=== PATIENT | female | born 1950 | race Caucasian/White ===

== ENCOUNTER 2016-12-05 08:47 | Inpatient (IN) | payer OTHER ==
[~2016-12-05] VITALS: Ht 162.6 cm; Wt 106.6 kg
[~2016-12-05 08:47] MED LIST: ADVAIR HFA 115-12 GM PO; ALBUTEROL 3 ML3 ML INH; ALLERGY10 MG PO; ASPIRIN EC81 M1 PO; ASPIRIN81 M4 PO; BENADRYL25 MG PO; CELEXA20 M1 PO; CELEXA40 M1 PO; CELEXA40 MG PO; CIPRO 500MG TA500 MG PO; CITALOPRAM40 MG PO; CRANBERRY CONC500 MG PO; CRANBERRY250 MG PO; CRANBERRY500 M2 PO; ECOTRIN81 MG PO; ENALAPRIL MALEA10 M1 PO; ENALAPRIL MALEA20 M1 PO; ENALAPRIL MALEA20 MG PO; HUMALOG 100U100 U/ML SC; HUMALOG100 UNIT/2; HYDROCHLOROTHIA25 M1 PO; HYDROCODON-ACE1 EAC2 PO; HYDROCODONE BI120 M1 PO; HYDRODIURIL 2525 MG PO; LANTUS SOL100 UNIT/1 SC; LANTUS100 U/ML SC; LEVEMIR 10100 UNITS/ SC; LEVOTHYROXINE0.15 M1 PO; LIPITOR20 M2 PO; LOVENOX 4040 MG/0.4 SC; LUNESTA2 MG PO; MAGNESIUM250 M2 PO; MAGNESIUM400 M1 PO; MASON NATURAL1200 MG PO; MELATONIN10 M2 PO; NOVOLOG100 U/ML SC; OMEGA-31000 M1 PO; PANTOPRAZOLE SO40 M1 PO; PANTOPRAZOLE SO40 MG PO; PERCOCET 325 MG1 TA2 PO; POTASSIUM99 M1 PO; PREDNISONE10 MG PO; PROBIOTIC FORMU1 CA1 PO; PROBIOTIC FORMU1 CAP PO; PROBIOTIC1 EACH PO; PYRIDIUM100 MG PO; SINGULAIR10 M1 PO; SYNTHROID0.15 MG PO; SYNTHROID0.175 MG PO; SYNTHROID137 MCG PO; SYNTHROID175 MCG PO; VITAMIN B-12500 MC1 PO; VITAMIN B-12500 MC2 PO; [UNRECOGNIZED DRUG - OTHER] PO; [UNRECOGNIZED DRUG - REMARK] PO
[2016-12-05 09:22] LABS: ABSOLUTE BASOPHIL COUNT 0 /CUMM (0.0-0.2); ABSOLUTE EOSINOPHIL COUNT 0.2 /CUMM (0.0-0.7); ABSOLUTE GRANULOCYTE CT 6.9 /CUMM (1.4-6.5); ABSOLUTE LYMPH COUNT 1.2 /CUMM (1.2-3.4); ABSOLUTE MONOCYTE COUNT 0.7 /CUMM (0.10-0.60); BASOPHIL % 0 % (0.0-2.0); EOSINOPHIL % 2.7 % (0-5); GRANULOCYTE % 76.7 % (42.2-75.2); HEMATOCRIT 33.6 % (37-47); MEAN CORPUSCULAR HGB CONC 33.6 G/DL (33.0-37.0); MEAN CORPUSCULAR VOLUME 77.3 FL (81.0-99.0); MEAN PLATELET VOLUME 9.4 FL (7.4-10.4); PLATELET COUNT 318 /CUMM (130-400); RBC DISTRIBUTION WIDTH 16.1 % (11.5-14.5); RED BLOOD CELL CT 4.35 /CUMM (4.20-5.40)
[2016-12-05] MEDS ORDERED: LAMICTAL25 M1 PO (09:42)
[2016-12-05] MEDS ORDERED: HYDROXYZINE HCL25 M2 PO (09:43)
--- NOTE | 2016-12-05 09:53 | ED DYSPNEA/ASTHMA COMPLAINT ---
History of Present Illness General Chief Complaint: Dyspnea (COPD, CHF, Other) Stated Complaint: SOB Source: patient, old records, EMS Exam Limitations: no limitations Vital Signs & Intake/Output Vital Signs & Intake/Output Vital Signs Date Time Temp Pulse Resp B/P Pulse O2 O2 Flow FiO2 Ox Delivery Rate 12/06 0655 97.6 62 20 110/64 94 Room Air 12/06 0038 75 95 12/06 0000 93 Room Air 12/05 2232 78 94 12/05 2120 98.5 69 20 126/62 93 Room Air 12/05 1842 Room Air 12/05 1826 98.4 84 20 114/50 93 Room Air 12/05 1740 85 20 99/50 95 Room Air 12/05 1420 98.7 78 20 104/53 96 Room Air ED Intake and Output 12/06 0000 12/05 1200 Intake Total 675 240 Output Total 400 Balance 275 240 Intake, IV 225 Intake, Oral 450 240 Output, Urine 400 Patient 235 lb 235 lb Weight Allergies Coded Allergies: Penicillins (Severe, ANAPHYLAXIS 02/28/16) cephalexin (Mild, RASH 02/28/16) erythromycin base (Mild, RASH 02/28/16) Sulfa (Sulfonamide Antibiotics) (ANAPHYLAXIS 05/10/16) sulfamethoxazole (From BACTRIM) (ANAPHYLAXIS 05/10/16) trimethoprim (From BACTRIM) (ANAPHYLAXIS 05/10/16) Reconcile Medications Atorvastatin Calcium (Lipitor) 20 MG TABLET 1 TAB PO DAILY CHOLESTEROL ( Reported) Cyanocobalamin (Vitamin B-12) (Vitamin B-12) 500 MCG TAB.SUBL 1 TAB PO DAILY SUPPLEMENT (Reported) Diphenhydramine HCl (Benadryl) 25 MG CAPSULE 2 CAP PO QPM SLEEP (Reported) Enalapril Maleate (Vasotec) 10 MG TABLET 1 TAB PO DAILY HTN (Reported) Escitalopram Oxalate (Lexapro) 10 MG TABLET 1 TAB PO DAILY DEPRSSION ( Reported) Fluticasone Propionate/Salme (Advair Hfa 115-21 Mcg Inhaler) 115 MCG-21 MCG/ ACTUATION HFA.AER.AD 2 PUF PO BID BREATHING PROBLEMS (Reported) Gabapentin 100 MG CAPSULE 2 CAP PO Q6 PRN NEUROPATHY (Reported) Hydrochlorothiazide 25 MG TABLET 1 TAB PO DAILY HTN (Reported) Hydroxyzine HCl 25 MG TABLET 1 TAB PO TID PRN ALLERGIES (Reported) Insulin Glargine,Hum.rec.anlog (Lantus Solostar) 100 UNIT/ML (3 ML) INSULN.PEN 36 UNIT SC QPM DIABETES (Reported) Insulin Lispro (Humalog) (Unknown Strength) VIAL (Unknown Dose) SEE SLIDING SCALE DIABETES (Reported) Lactobacillus Acidophilus (Probiotic) 1 EACH CAPSULE 1 CAP PO BID PROBIOTIC ( Reported) Lamotrigine (Lamictal) 25 MG TABLET 1 TAB PO BID MENTAL HEALTH (Reported) Levothyroxine Sodium (Synthroid) (Unknown Strength) TABLET 112 MCG PO DAILY THYROID (Reported) Magnesium Oxide (Magnesium) (Unknown Strength) CAPSULE (Unknown Dose) PO BID SUPPLEMENT (Reported) Melatonin 10 MG TABLET 2 TAB PO QPM SLEEP (Reported) Montelukast Sodium (Singulair) 10 MG TABLET 1 TAB PO AT BEDTIME ASTHMA ( Reported) Purdin-3 Fatty Acids (Purdin-3) (Unknown Strength) CAPSULE 1,200 MG PO DAILY SUPPLEMENT (Reported) Pantoprazole Sodium 40 MG TABLET.DR 1 TAB PO BID GERD (Reported) Potassium Gluconate (Potassium) 595 MG (99 MG) TABLET 1 TAB PO DAILY SUPPLEMENT (Reported) Quetiapine Fumarate (Seroquel) 25 MG TABLET 1 TAB PO QPM DEPRESSION (Reported ) Triage Note: PT PRESENTS TO ER C/O OF SOB AND CHEST PAIN. PT STATES SOB, DRY NON PRODUCTIVE COUGH, AND SORE THROAT STARTED TWO WEEKS AGO AND HAVE NOT IMPROVED. PT STATES SHE WAS RECENTLY TREATED WITH LEVAQUIN FOR STREP BUT WAS NOT ABLE TO COMPLETE COURSE BEACUSE SHE DEVELOPED DIARRHEA. PT STATES TODAY SHE FELT SOME PAIN IN HER CHEST. PT STATES PAIN IS MIDSTERNAL AND FEELS LIKE A DEEP ACHE. UPON ARRIVAL PT IS JAUNDICE AND SOB. Triage Nurses Notes Reviewed? yes Severity: moderate, severe Activities at Onset: rest Prior Episodes/Possible Cause: occasional episodes HPI: Patient presents for evaluation of dyspnea. Patient dyspnea began this morning although she is unable to state whether or not it occurred abruptly. Patient states that she has had similar episodes of shortness of breath secondary to COPD. Although patient complains of a mild sore throat, she denies fever or cold symptoms or chest pain. Patient also complains of jaundice noticed last night (patient has had jaundice before, treated at [facility] with antibiotics. Patient apparently got better. Patient had been taking Tylenol to be potentially the underlying issue). No leg swelling. Past History Travel History Traveled to [place] past 21 day No Medical History Any Pertinent Medical History? 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 No Review of Systems Review of Systems Constitutional: Reports: no symptoms. EENTM: Reports: no symptoms. Respiratory: Reports: see HPI. Cardiovascular: Reports: no symptoms. GI: Reports: no symptoms. Genitourinary: Reports: no symptoms. Musculoskeletal: Reports: no symptoms. Skin: Reports: see HPI. Neurological/Psychological: Reports: no symptoms. Hematologic/Endocrine: Reports: no symptoms. Immunologic/Allergic: Reports: no symptoms. All Other Systems: Reviewed and Negative Physical Exam Physical Exam Respiratory: sEE BELOW Comments: Gen.: Well-nourished, well-developed, no acute respiratory distress. Head: Normocephalic, atraumatic. Eyes: Normal inspection bilaterally Ears: Normal inspection bilaterally Nose: Normal inspection Throat/mouth : Moist mucosa Neck: Supple, full range of motion, no goiter Heart: Regular rate and rhythm, no murmurs rubs or gallops Lungs: Clear to auscultation bilaterally with normal air entry Chest: Nontender Back: Normal range of motion Abdomen: Soft, nontender, nondistended, normal bowel sounds Extremities: Normal range of motion grossly, equal radial pulses, no cyanosis clubbing or edema Neurologic: Cranial nerves grossly intact, speech is clear Skin: warm and dry Psychiatric: Calm, cooperative, no apparent delusions or hallucinations Core Measures ACS in differential dx? No Severe Sepsis Present: No Septic Shock Present: No Progress Differential Diagnosis: asthma, AMI, bronchitis, CHF, COPD, pneumonia, pneumothorax, unstable angina Plan of Care: Orders Procedure Date/time Status Change service to 12/06 0720 Active PROTHROMBIN TIME 12/06 0600 Complete MONOSPOT TEST 12/06 0600 Complete ANTIANTI-MITOCHONDRIAL AB Ref$ 12/06 0600 Active IgG SUBCLASSES Ref$ 12/06 0600 Active HEPATIC FUNCTION PANEL 12/06 0600 Complete STEVE MCGILL VIRUS SCREEN Ref$ 12/06 0600 Active CYTOMEGALOVIRUS Ref$ 12/06 0600 Active CBC WITHOUT DIFFERENTIAL 12/06 0600 Complete BASIC ELECTROLYTES PLUS BUN&CR 12/06 0600 Complete Heart Healthy Diet 12/05 D Active CONTIN. POSITIVE AIRWAY PRESS 12/05 2330 Complete TOTAL IRON BINDING CAPACITY 12/05 1900 Complete PROTHROMBIN TIME 12/05 1900 Complete AMMONIA 12/05 1900 Complete MAGNESIUM 12/05 1900 Complete HEPATIC FUNCTION PANEL 12/05 1900 Complete FERRITIN 12/05 1900 Complete SERUM IRON 12/05 1900 Complete CERULOPLASMIN Ref$ 12/05 1900 Active BASIC ELECTROLYTES PLUS BUN&CR 12/05 1900 Complete Vital Signs 12/05 1841 Complete Teach/Educate 12/05 1841 Active Nutritional Intake, Monitor 12/05 1841 Active Isolation 12/05 1841 Active Intake & Output 12/05 1841 Complete Patient Care Conference 12/05 1841 Active Activity/Ambulation 12/05 1841 Active CULTURE,URINE 12/05 1612 Active BLOOD CULTURE 12/05 1612 Active Add-on Test (ER Only) 12/05 1516 Active Pathway - chart 12/05 1459 Active Misc Message 12/05 1459 Active House Staff 12/05 1459 Active ED Holding Orders 12/05 1459 Active Lab Add-on Test 12/05 1459 Active Vital Signs 12/05 1459 Active Code Status 12/05 1456 Active Patient Data 12/05 1417 Active Admit to inpatient 12/05 1349 Active Add-on Test (ER Only) 12/05 1316 Active FingerStick- Glucose 12/05 1237 Active Add-on Test (ER Only) 12/05 1218 Active Add-on Test (ER Only) 12/05 1216 Active Intake & Output 12/05 1034 Active ACETOMINOPHEN 12/05 0908 Complete PROTHROMBIN TIME 12/05 0908 Complete HEPATITIS PANEL 12/05 0908 Complete MONOSPOT TEST 12/05 0907 Complete ANTI-SMOOTH MUSCLE AB Ref$ 12/05 0907 Active ANTINUCLEAR ANTIBODY 12/05 09 Complete CONTIN. POSITIVE AIRWAY PRESS 12/05 UNK Complete Lab Add-on Test 12/05 UNK Active Lab Add-on Test 12/05 UNK Active VTE Mechanical Prophylaxis 12/05 UNK Active Laboratory Tests 12/06/16 0620: Anion Gap 12, Estimated GFR 41 L, BUN/Creatinine Ratio 23.8, Total Bilirubin 4.5 H, Direct Bilirubin 3.1 H, AST 258 H, ALT 286 H, Alkaline Phosphatase 708 H, Total Protein 5.6 L, Albumin 2.7 L, PT 10.8, INR 1.03, CBC w Diff NO MAN DIFF REQ, RBC 3.84 L, MCV 78.0 L, MCH 26.4 L, RDW 16.7 H, MPV 9.1, Gran % 70.9, Lymphocytes % 17.1 L, Monocytes % 8.8, Eosinophils % 3.2, Basophils % 0 L, Absolute Granulocytes 4.3, Absolute Lymphocytes 1.0 L, Absolute Monocytes 0.5, Absolute Eosinophils 0.2, Absolute Basophils 0, PUBS MCHC 33.8 12/06/16 0600: Infectious [place] Titer NEGATIVE 12/06/16 0600: IgG Total Pending, IgG1 Pending, IgG2 Pending, IgG3 Pending, IgG4 Pending, Anti- Mitochondrial Ab Pending, CMV IgG Ab Pending, CMV IgM Ab Pending, EBV Capsid Ag IgG Ab Pending, EBV Capsid Ag IgM Ab Pending, EBV Nuclear Ag IgG Ab Pending, EBV Interpretation Pending 12/05/161909: Ceruloplasmin Pending 12/05/161909: Anion Gap 12, Estimated GFR 30 L, BUN/Creatinine Ratio 22.4, Magnesium 2.1, Iron 72, TIBC 337, Ferritin 243.0, Total Bilirubin 4.7 H, Direct Bilirubin 3.7 H, AST 444 H, ALT 364 H, Alkaline Phosphatase 799 H, Ammonia 13, Total Protein 5.8 L, Albumin 2.8 L, PT 11.6, INR 1.11 Microbiology 12/05 1949 URINE ROUT: Urine Culture - RECD 12/05 1919 BLOOD: Blood Culture - RECD 12/05 1909 BLOOD: Blood Culture - RECD Diagnostic Imaging: Discussed w/RAD: Ultrasound. Radiology Impression: PATIENT: TELLO MONTGOMERY PRESENT AGE: 66 PATIENT ACCOUNT NO: [id number] : 49 LOCATION: [facility] ORDERING PHYSICIAN: TREVOR ROSS MD SERVICE DATE: 12/05/16 EXAM TYPE: US - US- LIMITED ABDOMEN EXAMINATION: US ABDOMEN LIMITED CLINICAL INFORMATION: Jaundice. COMPARISON: CT abdomen and pelvis from 07/06/2016. TECHNIQUE: Real-time imaging of the right upper quadrant abdominal viscera. FINDINGS: PANCREAS: Pancreas is partially obscured by bowel gas. There is no focal abnormality detected in the visualized portions of the pancreatic neck and body. No pancreatic ductal dilatation. LIVER: Liver parenchyma appears diffusely hyperechoic, suggestive of steatosis, without focal lesion or intrahepatic bile duct dilatation. GALLBLADDER: Surgically absent. COMMON DUCT: The visualized common hepatic duct is normal in caliber, measuring 2-3 mm diameter. RIGHT KIDNEY: Normal. No hydronephrosis. No renal calculi or focal parenchymal lesions. The kidney measures 11.7 cm in maximum dimension. FREE FLUID: None. IMPRESSION: Liver parenchyma appears diffusely hyperechoic -- a finding typically due to steatosis. No evidence of hepatic mass, cirrhotic morphology or bile duct dilatation. DICTATED BY: JOSY HUNTER MD DATE/TIME DICTATED:12/05/161203 SERVICE OPERATOR:[email or web address] DATE/TIME TRANSCRIBED:12/05/161203 CONFIDENTIAL, DO NOT COPY WITHOUT APPROPRIATE AUTHORIZATION. <Electronically signed in Other Vendor System> SIGNED BY: JOSY HUNTER MD 12/05/16 1211 Initial ED EKG: NSR, rate (90) Prior EKG: unchanged Comments: In addition to the above, the patient states that she has been taking Benadryl and hydrochlorothiazide for diffuse pruritus. She states she saw her doctor last week for a sore throat and was placed on Levaquin. She then had profuse diarrhea and discontinued the medication. states that he is unable to treat her for her sore throat until the diarrhea resolves. Patient states that she was seen a [facility] for similar case of jaundice that she states was treated with large doses of antibiotics. The cause of the jaundice is somewhat unclear at this time. We'll attempt to speak with her doctor about this past episode. 12/05/2016 1:15:47 PM patient is being evaluated by Dr. Romo in the emergency department. MRCP ordered. Plan admission for monitoring of liver functions. Departure Departure Disposition: STILL A PATIENT Condition: Stable Clinical Impression Primary Impression: Jaundice Secondary Impressions: Dyspnea Qualifiers: Dyspnea type: unspecified Qualified Code: R06.00 - Dyspnea, unspecified Hyperbilirubinemia Liver disease Transaminitis Referrals: NESTOR VASQUEZ DO (PCP/Family) Departure Forms: Customer Survey General Discharge Information Admission Note Spoke With: KWADWO URIAS M.D Documentation of Exam: Documentation of any treatments & extenuating circumstances including Concerns Regarding Discharge (functional status, medication knowledge or non-compliance, living conditions, etc.) that warrant an admission rather than observation: pt has clincial jaundice and dyspnea. she has acute elevations in liver enzymes and bilirubin levels. the cause of her jaundice is unknown. she is at high risk of liver failure if her liver function worsens. her dyspnea makes her a poor candidate for outpt management as i feel she might not be able to comply with treatment plan. she requires close clinical monitoring of vitals, liver functions and abd exam (for pain/tenderness in RUQ). gi consult should be obtained. inr should be monitored for worsening. i feel pt will require a multiple day hospitalization. Critical Care Note Critical Care Note Critical Care Time: non-applicable
--- NOTE | 2016-12-05 10:14 | RADIOLOGY REPORT ---
EXAMINATION: XR PORTABLE CHEST CLINICAL INFORMATION: Shortness of breath. COMPARISON: 07/29/2016 TECHNIQUE: Portable AP view of the chest was obtained. FINDINGS: Large body habitus. Lungs are symmetrically expanded and clear. Trachea is midline position. No pulmonary consolidation, pneumothorax or pleural effusion. Cardiac silhouette in the normal size range. There is no cephalization of pulmonary venous flow or interstitial edema. The visualized bones are intact. IMPRESSION: No acute cardiopulmonary findings compared to 07/29/2016.
--- NOTE | 2016-12-05 12:11 | ULTRASOUND REPORT ---
EXAMINATION: US ABDOMEN LIMITED CLINICAL INFORMATION: Jaundice. COMPARISON: CT abdomen and pelvis from 07/06/2016. TECHNIQUE: Real-time imaging of the right upper quadrant abdominal viscera. FINDINGS: PANCREAS: Pancreas is partially obscured by bowel gas. There is no focal abnormality detected in the visualized portions of the pancreatic neck and body. No pancreatic ductal dilatation. LIVER: Liver parenchyma appears diffusely hyperechoic, suggestive of steatosis, without focal lesion or intrahepatic bile duct dilatation. GALLBLADDER: Surgically absent. COMMON DUCT: The visualized common hepatic duct is normal in caliber, measuring 2-3 mm diameter. RIGHT KIDNEY: Normal. No hydronephrosis. No renal calculi or focal parenchymal lesions. The kidney measures 11.7 cm in maximum dimension. FREE FLUID: None. IMPRESSION: Liver parenchyma appears diffusely hyperechoic -- a finding typically due to steatosis. No evidence of hepatic mass, cirrhotic morphology or bile duct dilatation.
--- NOTE | 2016-12-05 13:45 | Cons- Gastroenterology ---
General Information and HPI Consulting Request Date of Consult: 12/05/16 Requested By: Harpal Gleason MD Reason for Consult: Increased LFTs, jaundice Source of Information: patient Exam Limitations: no limitations History of Present Illness: Ms. Aguirre is a 66 year old female with a history of gastric bypass surgery who presented to the ER today with reports of worsening shortness of breath and noticing herself to be jaundiced over the previous 2 days. She has had some increasing dyspnea on exertaion over the past several days, but she has been without any cough or sputum production or fevers. She also has not had any sick contacts. She notes that her son noted her to be jaundiced a few days ago and she was not aware of this and isn't certain when it started. She has some vague epigastric discomfort which is not a new symptom for her. She has been without any overt RUQ abdominal pain with eating or vomiting. She has been having loose stool which she reports is yellow in color. She denies any dark urine. She doesn't drink and she has not been taking excessive amounts of tylenol. She notes having a similar episode of jaundice a few years ago which she states resolved with antibiotics. On presentation she was afebrile and hemodynamically stable. She was noted to have increased LFTs and an increased bilirubin, but her tylenol level was normal and an US didn't show any signficant biliary dilation. Allergies/Medications Allergies: Coded Allergies: Penicillins (Severe, ANAPHYLAXIS 02/28/16) cephalexin (Mild, RASH 02/28/16) erythromycin base (Mild, RASH 02/28/16) Sulfa (Sulfonamide Antibiotics) (ANAPHYLAXIS 05/10/16) sulfamethoxazole (From BACTRIM) (ANAPHYLAXIS 05/10/16) trimethoprim (From BACTRIM) (ANAPHYLAXIS 05/10/16) Home Med List: Cholestyramine (With Sugar) (Questran Powder) 4 GRAM POWDER 4 G PO BID ELEVATED LIVER FUNCTION Cyanocobalamin (Vitamin B-12) (Vitamin B-12) 500 MCG TAB.SUBL 1 TAB PO DAILY SUPPLEMENT (Reported) Diphenhydramine HCl (Benadryl) 25 MG CAPSULE 2 CAP PO QPM SLEEP (Reported) Enalapril Maleate (Vasotec) 10 MG TABLET 1 TAB PO DAILY HTN (Reported) Escitalopram Oxalate (Lexapro) 10 MG TABLET 1 TAB PO DAILY DEPRSSION ( Reported) Fluticasone Propionate/Salme (Advair Hfa 115-21 Mcg Inhaler) 115 MCG-21 MCG/ ACTUATION HFA.AER.AD 2 PUF PO BID BREATHING PROBLEMS (Reported) Gabapentin 100 MG CAPSULE 2 CAP PO Q6 PRN NEUROPATHY (Reported) Hydrochlorothiazide 25 MG TABLET 1 TAB PO DAILY HTN (Reported) Hydroxyzine HCl 25 MG TABLET 1 TAB PO TID PRN ALLERGIES (Reported) Insulin Glargine,Hum.rec.anlog (Lantus Solostar) 100 UNIT/ML (3 ML) INSULN.PEN 36 UNIT SC QPM DIABETES (Reported) Insulin Lispro (Humalog) (Unknown Strength) VIAL (Unknown Dose) SEE SLIDING SCALE DIABETES (Reported) Lactobacillus Acidophilus (Probiotic) 1 EACH CAPSULE 1 CAP PO BID PROBIOTIC ( Reported) Levothyroxine Sodium (Synthroid) (Unknown Strength) TABLET 112 MCG PO DAILY THYROID (Reported) Magnesium Oxide (Magnesium) (Unknown Strength) CAPSULE (Unknown Dose) PO BID SUPPLEMENT (Reported) Melatonin 10 MG TABLET 2 TAB PO QPM SLEEP (Reported) Montelukast Sodium (Singulair) 10 MG TABLET 1 TAB PO AT BEDTIME ASTHMA ( Reported) Wellington-3 Fatty Acids (Wellington-3) (Unknown Strength) CAPSULE 1,200 MG PO DAILY SUPPLEMENT (Reported) Pantoprazole Sodium 40 MG TABLET.DR 1 TAB PO BID GERD (Reported) Potassium Gluconate (Potassium) 595 MG (99 MG) TABLET 1 TAB PO DAILY SUPPLEMENT (Reported) Quetiapine Fumarate (Seroquel) 25 MG TABLET 1 TAB PO QPM DEPRESSION (Reported ) Current Medications: Current Medications Sig/Shayy Start time Last Medication Dose Route Stop Time Status Admin Budesonide/ 2 PUF BID 12/05 2199 UNVr Formoterol Fumarate INH Cyanocobalamin 1,000 MCG DAILY 12/06 1000 UNVr PO Diphenhydramine HCl 25 MG Q6P PRN 12/05 1445 AC PO Diphenhydramine HCl 25 MG ONCE ONE 12/05 1030 DC 12/05 IV 12/05 1031 1030 Diphenhydramine HCl 0 .STK-MED ONE 12/05 1028 DC .ROUTE Insulin Aspart 0 TIDAC 12/05 1700 AC SC Insulin Detemir 24 UNITS BID 12/05 2199 UNVr SC Levothyroxine Sodium 0.112 MG DAILY AC 12/06 0700 UNVr PO Lorazepam 0.5 MG ONCE ONE 12/05 1400 DC 12/05 IV 12/05 1401 1350 Lorazepam 0 .STK-MED ONE 12/05 1347 DC .ROUTE Magnesium Oxide 400 MG ONE ONE 12/05 1115 DC 12/05 PO 12/05 1116 1111 Magnesium Oxide 0 .STK-MED ONE 12/05 1107 DC PO Montelukast Sodium 10 MG BID 12/05 2200 UNVr PO Potassium Chloride 0 .STK-MED ONE 12/05 1535 DC PO Potassium Chloride 40 MEQ ONCE ONE 12/05 1530 DC 12/05 PO 12/05 1531 1545 Sodium Chloride 1,000 ML Q13H 12/05 1500 AC IV Past History Travel History Traveled to [place] past 21 day No Medical History Neurological: CVA EENT: NONE Cardiovascular: hypertension Respiratory: asthma Gastrointestinal: GERD Hepatic: NONE Renal: NONE Musculoskeletal: fracture, osteoarthritis Psychiatric: anxiety, depression Endocrine: diabetes, hyperthyroidism Blood Disorders: NONE Cancer(s): cervical cancer 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 self Services at Home: None Primary Language: Kyrgyz Functional Ability ADLs Independent: dressing, eating, toileting, bathing. Ambulation: independent Review of Systems Review of Systems Constitutional: Denies: no symptoms. EENTM: Reports: icterus. Cardiovascular: Denies: no symptoms. Respiratory: Reports: short of breath. Denies: cough, sputum production. GI: Reports: see HPI. Genitourinary: Denies: no symptoms. Musculoskeletal: Denies: no symptoms. Skin: Reports: jaundice. Neurological/Psychological: Denies: no symptoms. Hematologic/Endocrine: Denies: no symptoms. Immunologic/Allergic: Denies: no symptoms. All Other Systems: Reviewed and Negative Exam & Diagnostic Data Vital Signs and I&O Vital Signs Date Time Temp Pulse Resp B/P Pulse O2 O2 Flow FiO2 Ox Delivery Rate 12/05 1108 98.4 82 18 130/65 98 12/05 0905 98 12/05 0904 96.8 93 20 127/63 98 Room Air Intake & Output 12/05 1600 12/05 0400 12/04 04012/03 040 Intake Total 240 Output Total Balance 240 Intake, Oral 240 Patient 235 lb Weight Physical Exam General Appearance: well developed/nourished, no apparent distress, alert, awake , comfortable Head: atraumatic, normal appearance Eyes: Bilateral: other (scleral icterus). Ears, Nose, Throat: normal pharynx, normal ENT inspection Neck: normal inspection, supple, full range of motion Respiratory: normal breath sounds, chest non-tender, no respiratory distress, lungs clear Cardiovascular: regular rate/rhythm Gastrointestinal: normal bowel sounds, soft, non-tender, no organomegaly Rectal: deferred Back: normal inspection, normal range of motion Extremities: normal inspection, normal capillary refill, no edema Neurologic/Psych: no motor/sensory deficits, awake, alert, oriented x 3 Skin: intact, jaundice Results Pertinent Lab Results: Laboratory Tests 12/05 907 Chemistry Sodium (137 - 145 mmol/L) 137 Potassium (3.5 - 5.1 mmol/L) 3.0 L Chloride (98 - 107 mmol/L) 98 Carbon Dioxide (22 - 30 mmol/L) 25 Anion Gap (5 - 16) 15 BUN (7 - 17 mg/dL) 41 H Creatinine (0.5 - 1.0 mg/dL) 1.6 H Estimated GFR (>60 ml/min) 32 L BUN/Creatinine Ratio (7 - 25 %) 25.6 H Glucose (65 - 99 mg/dL) 208 H Calcium (8.4 - 10.2 mg/dL) 9.1 Total Bilirubin (0.2 - 1.3 mg/dL) 9.9 H Direct Bilirubin (< 0.4 mg/dL) 8.3 H GGT (12 - 43 U/L) 424 H AST (14 - 36 U/L) 685 H ALT (9 - 52 U/L) 464 H Alkaline Phosphatase (<127 U/L) 987 H Troponin I (< 0.11 ng/ml) < 0.01 Total Protein (6.3 - 8.2 g/dL) 6.5 Albumin (3.5 - 5.0 g/dL) 3.2 L Globulin (1.9 - 4.2 gm/dL) 3.3 Albumin/Globulin Ratio (1.1 - 2.2 %) 1.0 L Coagulation PT Pending INR Pending Hematology CBC w Diff NO MAN DIFF REQ WBC (4.8 - 10.8 /CUMM) 9.0 RBC (4.20 - 5.40 /CUMM) 4.35 Hgb (12.0 - 16.0 G/DL) 11.3 L Hct (37 - 47 %) 33.6 L MCV (81.0 - 99.0 FL) 77.3 L MCH (27.0 - 31.0 PG) 26.0 L RDW (11.5 - 14.5 %) 16.1 H Plt Count (130 - 400 /CUMM) 318 MPV (7.4 - 10.4 FL) 9.4 Gran % (42.2 - 75.2 %) 76.7 H Lymphocytes % (20.5 - 51.1 %) 13.3 L Monocytes % (1.7 - 9.3 %) 7.3 Eosinophils % (0 - 5 %) 2.7 Basophils % (0.0 - 2.0 %) 0 L Absolute Granulocytes (1.4 - 6.5 /CUMM) 6.9 H Absolute Lymphocytes (1.2 - 3.4 /CUMM) 1.2 Absolute Monocytes (0.10 - 0.60 /CUMM) 0.7 H Absolute Eosinophils (0.0 - 0.7 /CUMM) 0.2 Absolute Basophils (0.0 - 0.2 /CUMM) 0 PUBS MCHC (33.0 - 37.0 G/DL) 33.6 Serology Hepatitis A IgM Ab (NONREACTIVE) NONREACTIVE Hep Bs Antigen (NONREACTIVE) NONREACTIVE Hep B Core IgM Ab Conf (NONREACTIVE) NONREACTIVE Hepatitis C Antibody (NONREACTIVE) NONREACTIVE Toxicology Acetaminophen (10.0 - 30.0 ug/mL) < 10.0 L Imaging/Other Studies: US: FINDINGS: PANCREAS: Pancreas is partially obscured by bowel gas. There is no focal abnormality detected in the visualized portions of the pancreatic neck and body. No pancreatic ductal dilatation. LIVER: Liver parenchyma appears diffusely hyperechoic, suggestive of steatosis, without focal lesion or intrahepatic bile duct dilatation. GALLBLADDER: Surgically absent. COMMON DUCT: The visualized common hepatic duct is normal in caliber, measuring 2-3 mm diameter. RIGHT KIDNEY: Normal. No hydronephrosis. No renal calculi or focal parenchymal lesions. The kidney measures 11.7 cm in maximum dimension. FREE FLUID: None. IMPRESSION: Liver parenchyma appears diffusely hyperechoic -- a finding typically due to steatosis. No evidence of hepatic mass, cirrhotic morphology or bile duct dilatation. MRCP: EXAM TYPE: MRI - MRI-ABDOMEN EXAMINATION: MR ABDOMEN CHOLANGIOPANCREATOGRAPHY CLINICAL INFORMATION: Elevation in transaminases, bilirubin, alkaline phosphatase COMPARISON: Ultrasound from earlier today. CT from 07/06/2016 TECHNIQUE: Multiple routine MRI sequences through the abdomen were obtained. Heavily T2 weighted images were performed utilizing a dedicated MRCP technique. Contrast was not utilized for the study. FINDINGS: Biliary system: The common bile duct is normal in course and caliber with no evidence for intra-or extrahepatic biliary ductal dilatation. The common bile duct measures 0.6 cm in diameter. No intraluminal filling defects are appreciated. Gallbladder: Absent. Pancreatic duct: The pancreatic duct is normal in course and caliber with no evidence for pancreatic ductal obstruction. There is a part of signal on out of phase imaging involving the liver parenchyma consistent with hepatic steatosis. The liver is normal in size, shape, and signal. No focal hepatic lesion identified. No visualized abnormalities are seen in the kidneys, adrenals, pancreatic parenchyma, or spleen. IMPRESSION: Normal MRCP. No pancreatic or biliary ductal abnormality seen. No evidence for obstruction or intraluminal filling defects. Assessment/Plan Assessment/Recommendations: Assessment: Ms. Aguirre is a 66 year old female who presents with shortness of breath and was found to be jaundiced with markedly abnormal increased liver function tests but imaging is negative for evidence for evidence of choledocholithiasis or biliary obstruction. As she is without any significant abdominal pain or any fevers to suggest an underlying infection I do not feel she has cholangitis and I would recommend observing off of antibiotics for now, but would have a low threshold to start them should she spike a temperature or if she develops any abdominal pain. She does have a history of choledocholithiasis and cholangitis back in 2011 when she underwent an ERCP with the assistance of a surgical port placed secondary to her gastric bypass surgery and this was done at [facility] so it is certainly possible that she may have a retained stone, but her imaging does not currently show this and she is without any pain so other etiologies of her increased LFTs should be considered. It should also be noted that in June 2016 she had another hospitalization at [facility] during which time she was treated empirically for cholangitis secondary to positive blood cultures and a positive urine culture and an increased white blood cell count, but imaging at that time was also negative for choledocholithiasis and her LFTs were not as high as they are now. Other potential etiologies of her increased LFTs could be a drug reaction, increased LFTs secondary to sepsis/infection although she doesn't appear to have an active infection, autoimmune hepatitis, PBC/PSC or viral hepatitis. Recommendations: 1. Panculture the patient and would observe off of antibiotics, but would have a low threshold to start antibiotics to cover biliary sources of infection should she develop any abdominal pain or fevers. 2. Follow daily LFTs as well as a daily INR. 3. Check a viral hepatitis panel and would also check an AMA, anti-smooth muscle antibody, antimitochondrial antibody, iron studies, CMV and EBV antibodies. 4. Notify GI if she develops any signs of cholangitis such as a fever or right upper quadrant pain. 5. She should have serial neurological exams to evaluate for hepatic encephalopathy and GI should be contacted should she develop any signs of encephalopathy or mental status changes or any changes to suggest cholangitis such as RUQ pain or fevers. I will continue to follow this patient and make further recognitions based on her clinical course and the results of repeat blood work. Problem List: 1. Cholangitis 2. Choledocholithiasis 3. Jaundice 4. Liver disease 5. Transaminitis Copies To: NESTOR VASQUEZ DO Consult Acknowledgment - Thank you for your consult request.
[2016-12-05 13:53] LABS: PT 12.5 SEC (9.4-12.5)
--- NOTE | 2016-12-05 14:22 | History & Physical ---
MANDO JORGE MD 12/05/16 1421: General Information and HPI MD Statement: I have seen and personally examined TELLO MONTGOMERY and documented this H&P. The patient is a 66 year old F who presented with a patient stated chief complaint of [abdoomnial pain and yellowing of skin]. Source of Information: patient Exam Limitations: no limitations History of Present Illness: This is a 66 year old woman with a past medical history of obesity status post Leonard-en-Y bypass, diabetes mellitus 2 insulin-dependent, hypertension, hypothyroidism, obstructive sleep apnea on CPAP, history of choledocholithiasis status post ER CP in 2011,and cholecystectomy 2011, hospitalized for elevated LFTs in June 2016 at [facility], with MRCP negative for biliary pathology and then treated for acute cholangitis with complicated bacteremia with Escherichia coli plus enterococcus with 14 day course of doxycycline and Bactrim ,who presented to the [facility] with worsening shortness of breath, and mild abdominal pain and feeling that she is more "yellow". The patient does complain of abdominal pain, but denies any fever chills or shakes. She has also noticed that she has been having diarrhea for the last 6 days. Also noticed that her urine is more darker and has been having persistent itching all over her body with more pronounced in the lower extremity. Denies any recent changes in her dietary habits or her alcohol or medication intake. She is not on any chronic acetaminophen therapy. Regarding her medication she was recently started on lamotrigine and hydroxyzine for her anxiety by her psychiatrist. Her rest of the medication have been the same for the last few years. Also denies any pulmonary or cardiac symptoms at this point but she did complain of intermittent shortness of breath when she exerts. No recent changes in her diet or any salt intake. Past medical history and [facility] hospitalization(confirmed with EPIC) June 2016 from July 12 2016: Diagnosed with acute cholangitis complicated by bacteremia as mentioned above and treated with Bactrim and doxycycline for 14 days. Patient's MRCP done on 2015 showed no biliary duct dilatation or choledocholithiasis. ERCP performed in 2011 [facility] showed biliary dilation and then subsequently Lap Cholecystectomy (2011). Allergies/Medications Allergies: Coded Allergies: Penicillins (Severe, ANAPHYLAXIS 02/28/16) cephalexin (Mild, RASH 02/28/16) erythromycin base (Mild, RASH 02/28/16) Sulfa (Sulfonamide Antibiotics) (ANAPHYLAXIS 05/10/16) sulfamethoxazole (From BACTRIM) (ANAPHYLAXIS 05/10/16) trimethoprim (From BACTRIM) (ANAPHYLAXIS 05/10/16) Home Med list Atorvastatin Calcium (Lipitor) 20 MG TABLET 1 TAB PO DAILY CHOLESTEROL ( Reported) Cyanocobalamin (Vitamin B-12) (Vitamin B-12) 500 MCG TAB.SUBL 1 TAB PO DAILY SUPPLEMENT (Reported) Diphenhydramine HCl (Benadryl) 25 MG CAPSULE 2 CAP PO QPM SLEEP (Reported) Enalapril Maleate (Vasotec) 10 MG TABLET 1 TAB PO DAILY HTN (Reported) Escitalopram Oxalate (Lexapro) 10 MG TABLET 1 TAB PO DAILY DEPRSSION ( Reported) Fluticasone Propionate/Salme (Advair Hfa 115-21 Mcg Inhaler) 115 MCG-21 MCG/ ACTUATION HFA.AER.AD 2 PUF PO BID BREATHING PROBLEMS (Reported) Gabapentin 100 MG CAPSULE 2 CAP PO Q6 PRN NEUROPATHY (Reported) Hydrochlorothiazide 25 MG TABLET 1 TAB PO DAILY HTN (Reported) Hydroxyzine HCl 25 MG TABLET 1 TAB PO TID PRN ALLERGIES (Reported) Insulin Glargine,Hum.rec.anlog (Lantus Solostar) 100 UNIT/ML (3 ML) INSULN.PEN 36 UNIT SC QPM DIABETES (Reported) Insulin Lispro (Humalog) (Unknown Strength) VIAL (Unknown Dose) SEE SLIDING SCALE DIABETES (Reported) Lactobacillus Acidophilus (Probiotic) 1 EACH CAPSULE 1 CAP PO BID PROBIOTIC ( Reported) Lamotrigine (Lamictal) 25 MG TABLET 1 TAB PO BID MENTAL HEALTH (Reported) Levothyroxine Sodium (Synthroid) (Unknown Strength) TABLET 112 MCG PO DAILY THYROID (Reported) Magnesium Oxide (Magnesium) (Unknown Strength) CAPSULE (Unknown Dose) PO BID SUPPLEMENT (Reported) Melatonin 10 MG TABLET 2 TAB PO QPM SLEEP (Reported) Montelukast Sodium (Singulair) 10 MG TABLET 1 TAB PO AT BEDTIME ASTHMA ( Reported) De Berry-3 Fatty Acids (De Berry-3) (Unknown Strength) CAPSULE 1,200 MG PO DAILY SUPPLEMENT (Reported) Pantoprazole Sodium 40 MG TABLET.DR 1 TAB PO BID GERD (Reported) Potassium Gluconate (Potassium) 595 MG (99 MG) TABLET 1 TAB PO DAILY SUPPLEMENT (Reported) Quetiapine Fumarate (Seroquel) 25 MG TABLET 1 TAB PO QPM DEPRESSION (Reported ) Compliance With Home Meds: GOOD Past History Travel History Traveled to [place] past 21 day No Medical History Neurological: CVA EENT: NONE Cardiovascular: hypertension Respiratory: asthma Gastrointestinal: GERD Hepatic: NONE Renal: NONE Musculoskeletal: fracture, osteoarthritis Psychiatric: anxiety, depression Endocrine: diabetes, hyperthyroidism Blood Disorders: NONE Cancer(s): cervical cancer 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 self Services at Home: None Primary Language: Iranian Functional Ability ADLs Independent: dressing, eating, toileting, bathing. Ambulation: independent Review of Systems Review of Systems Constitutional: Reports: see HPI. EENTM: Reports: icterus. Cardiovascular: Denies: chest pain, edema, orthopena. Respiratory: Denies: cough, hemoptysis, orthopnea. GI: Reports: abdominal pain, nausea, vomiting. Skin: Reports: see HPI, jaundice. Neurological/Psychological: Denies: ataxia, confusion, dementia. Exam & Diagnostic Data Last 24 Hrs of Vital Signs/I&O Vital Signs Date Time Temp Pulse Resp B/P Pulse O2 O2 Flow FiO2 Ox Delivery Rate 12/05 1420 98.7 78 20 104/53 96 Room Air 12/05 1108 98.4 82 18 130/65 98 12/05 0905 98 12/05 0904 96.8 93 20 127/63 98 Room Air Intake & Output 12/05 1600 12/05 0800 12/05 0000 Intake Total 240 Output Total Balance 240 Intake, Oral 240 Patient 235 lb Weight Physical Exam General Appearance Alert, Oriented X3, Mild Distress Skin yellow discoloration HEENT Atraumatic, EOMI Neck Supple, No JVD, No thryomegaly Lymphatic Axillary nl, Cervical nl Cardiovascular Regular Rate, Normal S1, Normal S2 Lungs Clear to Auscultation, Normal Air Movement Abdomen soft, slightly tender in the right upper quadrant, nondistended with normal active bowel sounds, no hepatosplenomegaly Neurological Normal Speech, Strength at 5/5 X4 Ext, Normal Tone Extremities No Clubbing, No Cyanosis, No Edema Assessment/Plan Assessment: This is a 65-year-old female with a past medical history of Leonard-en-Y bypass for obesity, hypertension, diabetes mellitus, obstructive sleep apnea and history of choledocholithiasis status post cholecystectomy and ERCP in 2011 who presented with mild shortness of breath and abdominal pain. Vital signs at the time of admission showed Blood pressure of 140/80, respiration rate of 18, pulse rate of 84, saturation of 94% on room air, afebrile WBC and CBC within normal limits AST:685, ANC of 464, alkaline phosphatase of 987 Bilirubin of 9.9 with direct bilirubin of 8.3, creatinine 1.6, alkaline phosphatase of 987 Abdominal MRI and MRCP negative for any gallbladder pathology Abdominal ultrasound negative for any pathology Assessment 1. Acute hepatitis: The etiology for the acute hepatitis at this point is unknown. Infectious causes for the acute hepatitis aneeds be ruled out but the other important differential at this point considering the patient's history of hypothyroidism and diabetes mellitus is autoimmune hepatitis. Regarding the infectious process we should also rule out EBV and CMV hepatitis 2. History of hypothyroidism 3. History of insulin-dependent diabetes mellitus 4. History of hypertension 5. History of gastric bypass surgery status post revision 6. History of anxiety and depression 7.H/O FEDERICO with nocturnal CPAP. Plan Admit the patient to general medicine floor Follow closely for any neurological or encephalopathic changes. Repeat basic electrolyte panel in the afternoon including basic electrolyte panel, hepatitis panel, hepatic function panel, and INR Further diagnostic purposes should do autoimmune hepatitis panel which includes antimitochondrial antibodies, anti-smooth muscle antibodies, MARCO, infectious mononucleosis workup in including Monospot test, IgM for CMV, hepatitis serologies MRCP and ultrasound results reviewed and discussed with GI cyber security consultant in detail Blood cultures and urine culture to be sent The likelihood of this patient developing acute cholangitis is high considering that the patient had similar presentation recently in June 2016 and at at that time her MRCP was negative for any obstruction Blood CX times 2 Hold SSRi,Statin,Acetaminophen,Gabpentin,ACEI If the patient spikes a fever consider starting the patient on IV Unasyn and call GI stat Regular diet Continue with two third dose of the Levemir that is 24 units twice a day along with NovoLog sliding scale Continue Accu-Cheks Diphenhydramine for itching Repeat all electrolytes Continue with normal saline 75 mL per hour DVT prophylaxis at all times, but will continue with Alps Patient is full code As Ranked By This Provider Problem List: 1. Cholangitis 2. Choledocholithiasis 3. Full code status Core Measures/Miscellaneous Acute Coronary Syndrome ACS Diagnosis: No Cerebrovascular Accident CVA/TIA Diagnosis: No Congestive Heart Failure CHF Diagnosis: No Venous Thromboembolism VTE Risk Factors: Acute medical illness, Age > 40 VTE Prophylaxis Ordered Inpt: Mechanical (ALPS/TEDS) No Mech VTE prophylaxis d/t: No contraindications No VTE Pharm Prophylaxis d/t: No contraindications VTE Diagnosis: No VTE Type: NONE VTE Confirmed by (Test): NONE Severe Sepsis Severe Sepsis Present: Yes BC x2: Yes Lactic Acid x2: Yes IV ABX Broad Spectrum: Yes Septic Shock Septic Shock Present: No Miscellaneous Documentation Attending Case Discussed With: Yarelis Sauceda Primary Care Physician: NESTOR VASQUEZ DO Patient sees these Specialists none Level of Patient Care: General Medicine Consults Needed: Consulting Specialty: Gastroenterology YARELIS SAN MD 12/05/16 1522: Attending MD Review Statement Attending Statement Attending MD Statement: examined this patient, discuss w/resident/PA/HOLD WORKER, agreed w/resident/PA/HOLD WORKER, reviewed EMR data (avail), discussed with nursing, reviewed images, amended to note Attending Assessment/Plan: 66-year-old female with past medical history significant for diabetes, hypothyroidism, anxiety, depression, osteoarthritis, history of gastric bypass twice who is presenting with multitude of complaints. Patient's son noticed that she was getting more jaundiced. Patient herself has been feeling more fatigued and has been feeling short of breath. Symptoms duration is unknown but patient thinks that this is very recent. She was feeling more and more short of breath since yesterday. She denies as such any abdominal pain, she denies feeling nauseous. She did complain of some dyspnea on exertion and has sleep apnea at baseline. In the emergency room her LFTs were found to be very abnormal. Patient herself denies use off large doses of Tylenol or any other hepatotoxic medication. She has been started on hydroxyzine and and other psych medication by her psychiatrist. She claims that she has been on Lipitor for a number of years. She denies any episodes of dehydration or feeling dizzy or hypotensive. Vital Signs Date Time Temp Pulse Resp B/P Pulse O2 O2 Flow FiO2 Ox Delivery Rate 12/05 1420 98.7 78 20 104/53 96 Room Air 12/05 1108 98.4 82 18 130/65 98 12/05 0905 98 12/05 0904 96.8 93 20 127/63 98 Room Air on exam; aox3, nad. heent; mucous membranes dry, + scleral icterus. cv; s1,s2, rrr. resp; clear b/l abd; soft, mildly tender in epigastrium, bs+ ext; no edema. skin: + janundice. Laboratory Tests 12/05 12/05 12/05 0908 0907 0907 Chemistry Sodium (137 - 145 mmol/L) 137 Potassium (3.5 - 5.1 mmol/L) 3.0 L Chloride (98 - 107 mmol/L) 98 Carbon Dioxide (22 - 30 mmol/L) 25 Anion Gap (5 - 16) 15 BUN (7 - 17 mg/dL) 41 H Creatinine (0.5 - 1.0 mg/dL) 1.6 H Estimated GFR (>60 ml/min) 32 L BUN/Creatinine Ratio (7 - 25 %) 25.6 H Glucose (65 - 99 mg/dL) 208 H Calcium (8.4 - 10.2 mg/dL) 9.1 Total Bilirubin (0.2 - 1.3 mg/dL) 9.9 H Direct Bilirubin (< 0.4 mg/dL) 8.3 H GGT (12 - 43 U/L) 424 H AST (14 - 36 U/L) 685 H ALT (9 - 52 U/L) 464 H Alkaline Phosphatase (<127 U/L) 987 H Troponin I (< 0.11 ng/ml) < 0.01 Total Protein (6.3 - 8.2 g/dL) 6.5 Albumin (3.5 - 5.0 g/dL) 3.2 L Globulin (1.9 - 4.2 gm/dL) 3.3 Albumin/Globulin Ratio (1.1 - 2.2 %) 1.0 L Coagulation PT (9.4 - 12.5 SEC) 12.5 INR (0.90 - 1.19) 1.19 Hematology CBC w Diff NO MAN DIFF REQ WBC (4.8 - 10.8 /CUMM) 9.0 RBC (4.20 - 5.40 /CUMM) 4.35 Hgb (12.0 - 16.0 G/DL) 11.3 L Hct (37 - 47 %) 33.6 L MCV (81.0 - 99.0 FL) 77.3 L MCH (27.0 - 31.0 PG) 26.0 L RDW (11.5 - 14.5 %) 16.1 H Plt Count (130 - 400 /CUMM) 318 MPV (7.4 - 10.4 FL) 9.4 Gran % (42.2 - 75.2 %) 76.7 H Lymphocytes % (20.5 - 51.1 %) 13.3 L Monocytes % (1.7 - 9.3 %) 7.3 Eosinophils % (0 - 5 %) 2.7 Basophils % (0.0 - 2.0 %) 0 L Absolute Granulocytes (1.4 - 6.5 /CUMM) 6.9 H Absolute Lymphocytes (1.2 - 3.4 /CUMM) 1.2 Absolute Monocytes (0.10 - 0.60 /CUMM) 0.7 H Absolute Eosinophils (0.0 - 0.7 /CUMM) 0.2 Absolute Basophils (0.0 - 0.2 /CUMM) 0 PUBS MCHC (33.0 - 37.0 G/DL) 33.6 Immunology JESSIKA Titer Pending Anti-Nuclear Antibody Pending Anti-Smooth Muscle Ab Pending Serology Hepatitis A IgM Ab (NONREACTIVE) NONREACTIVE Hep Bs Antigen (NONREACTIVE) NONREACTIVE Hep B Core IgM Ab Conf (NONREACTIVE) NONREACTIVE Hepatitis C Antibody (NONREACTIVE) NONREACTIVE Infectious [place] Titer Pending Toxicology Acetaminophen (10.0 - 30.0 ug/mL) < 10.0 L All imaging reviwed. MRI ABd; IMPRESSION: Normal MRCP. No pancreatic or biliary ductal abnormality seen. No evidence for obstruction or intraluminal filling defects. Abd US: IMPRESSION: Liver parenchyma appears diffusely hyperechoic -- a finding typically due to steatosis. No evidence of hepatic mass, cirrhotic morphology or bile duct dilatation. CXR: Clear. A/P; 66-year-old female with past medical history significant for diabetes, hypothyroidism, anxiety, depression, osteoarthritis, history of gastric bypass twice who is admitted with new onset jaundice, abnormal LFTs, SOb, Silvana on CKD, dehydration and feeling fatigued. Patient admitted to medicine floor. MRI does not show any obstruction, GI had seeen the patient. Hep panel Neg. EBV pending. Will follow further GI recs and check for autoimmune w/u. Will monitor Liver enzymes and INR closely, check another level in pm and then in am. Avoid Hepatotoxic meds. Confirm and continue other meds, no tylenol, No statins. DVT px; Hep sq. Full code
--- NOTE | 2016-12-05 14:30 | MRI REPORT ---
EXAMINATION: MR ABDOMEN CHOLANGIOPANCREATOGRAPHY CLINICAL INFORMATION: Elevation in transaminases, bilirubin, alkaline phosphatase COMPARISON: Ultrasound from earlier today. CT from 07/06/2016 TECHNIQUE: Multiple routine MRI sequences through the abdomen were obtained. Heavily T2 weighted images were performed utilizing a dedicated MRCP technique. Contrast was not utilized for the study. FINDINGS: Biliary system: The common bile duct is normal in course and caliber with no evidence for intra-or extrahepatic biliary ductal dilatation. The common bile duct measures 0.6 cm in diameter. No intraluminal filling defects are appreciated. Gallbladder: Absent. Pancreatic duct: The pancreatic duct is normal in course and caliber with no evidence for pancreatic ductal obstruction. There is a part of signal on out of phase imaging involving the liver parenchyma consistent with hepatic steatosis. The liver is normal in size, shape, and signal. No focal hepatic lesion identified. No visualized abnormalities are seen in the kidneys, adrenals, pancreatic parenchyma, or spleen. IMPRESSION: Normal MRCP. No pancreatic or biliary ductal abnormality seen. No evidence for obstruction or intraluminal filling defects.
[2016-12-05] MEDS ORDERED: GABAPENTIN100 M2 PO (16:37)
[2016-12-05] MEDS ORDERED: SEROQUEL25 M1 PO (16:39)
[2016-12-05] MEDS ORDERED: LEXAPRO10 M1 PO (16:41)
[2016-12-05] MEDS ORDERED: VASOTEC10 MG PO (16:51)
[2016-12-05 18:26] VITALS: BP 114/50
[2016-12-05 20:04] LABS: PT 11.6 SEC (9.4-12.5)
[2016-12-05 21:20] VITALS: BP 126/62
[2016-12-06 06:55] VITALS: BP 110/64
[2016-12-06 07:58] LABS: ABSOLUTE BASOPHIL COUNT 0 /CUMM (0.0-0.2); ABSOLUTE EOSINOPHIL COUNT 0.2 /CUMM (0.0-0.7); ABSOLUTE GRANULOCYTE CT 4.3 /CUMM (1.4-6.5); ABSOLUTE MONOCYTE COUNT 0.5 /CUMM (0.10-0.60); BASOPHIL % 0 % (0.0-2.0); EOSINOPHIL % 3.2 % (0-5); MEAN CORPUSCULAR HGB 26.4 PG (27.0-31.0); MEAN CORPUSCULAR HGB CONC 33.8 G/DL (33.0-37.0); MEAN PLATELET VOLUME 9.1 FL (7.4-10.4); RBC DISTRIBUTION WIDTH 16.7 % (11.5-14.5); RED BLOOD CELL CT 3.84 /CUMM (4.20-5.40); WHITE BLOOD CELL COUNT 6.1 /CUMM (4.8-10.8)
[2016-12-06 08:14] LABS: PT 10.8 SEC (9.4-12.5)
--- NOTE | 2016-12-06 08:14 | PN- Student ---
LUCIO LAM 12/06/16 0813: Subjective Subjective: 66 yo female with PMH of Leonard-en-Y gastric bypass surgery x2, cholecystectomy, Type 2 DM (insulin dependent), HTN, hypothyroidism, acute cholangitis with complicated bacteremia with E. Coli and Enterococcus (June 2016) and obstructive sleep apnea on CPAP presents to [place] with pruritus, dark colored urine, diarrhea, and jaundice for the past 5 days. Patient is seen and examined at bedside. Patient is doing ok. Patient reports some mild pruritus overnight which was resolved with Benadryl. Patient is no longer having diarrhea but is still having dark-colored urine. Patient reports improved appetite and is tolerating PO intake of both solids and liquids. Patient denies h/a, vision changes, nausea, vomiting, chest pain, palpitations, shortness of breath, and difficulty with urination or bowel movements. Patient's RUQ and epigastric abdmoinal pain is much improved with some mild residual discomfort in the epigastric region. Patient has no other concerns at this time. Allergies: Confirmed with patient that in her admission that she did have Bactrim 14 days without an anaphylactic response. Objective Objective: Gen: AAOx3, NAD, obese 66yo female, appears stated age Skin: Warm to touch, no cyanosis, pallor, jaundice, no rashes Head: Normocephalic, Atraumatic Eyes: no sclera icterus, PERRL, normal EOM Neck: Supple, no masses appreciated, no JVD Cardiac: RRR, normal S1,S2, no murmurs/rubs/gallops Respiratory: CTAB, no decreased breath sounds, no increased work of breathing Abdomen: Soft, non-distended. NTTP in all quadrants, no rebound, no guarding, normal bowel sounds, no hepatomegaly, no splenomegaly, no masses appreciated, mildly tender to deep palpation to the epigastric region that non-radiating : deferred Ext: normal ROM Neuro: Results Results: Laboratory Tests 12/06/16 0620: Sodium Pending, Potassium Pending, Chloride Pending, Carbon Dioxide Pending, Anion Gap Pending, BUN Pending, Creatinine Pending, BUN/Creatinine Ratio Pending , Total Bilirubin Pending, Direct Bilirubin Pending, AST Pending, ALT Pending, Alkaline Phosphatase Pending, Total Protein Pending, Albumin Pending, PT Pending , INR Pending, CBC w Diff Pending, WBC Pending, RBC Pending, Hgb Pending, Hct Pending, MCV Pending, MCH Pending, RDW Pending, Plt Count Pending, MPV Pending, PUBS MCHC Pending 12/05/161909: Ceruloplasmin Pending 12/05/161909: Anion Gap 12, Estimated GFR 30 L, BUN/Creatinine Ratio 22.4, Magnesium 2.1, Iron 72, TIBC 337, Ferritin 243.0, Total Bilirubin 4.7 H, Direct Bilirubin 3.7 H, AST 444 H, ALT 364 H, Alkaline Phosphatase 799 H, Ammonia 13, Total Protein 5.8 L, Albumin 2.8 L, PT 11.6, INR 1.11 12/05/16 09: Anion Gap 15, Estimated GFR 32 L, BUN/Creatinine Ratio 25.6 H, Glucose 208 H, Calcium 9.1, Total Bilirubin 9.9 H, Direct Bilirubin 8.3 H, GGT 424 H, AST 685 H, ALT 464 H, Alkaline Phosphatase 987 H, Troponin I < 0.01, Total Protein 6.5, Albumin 3.2 L, Globulin 3.3, Albumin/Globulin Ratio 1.0 L, PT 12.5, INR 1.19, CBC w Diff NO MAN DIFF REQ, RBC 4.35, MCV 77.3 L, MCH 26.0 L, RDW 16.1 H, MPV 9.4, Gran % 76.7 H, Lymphocytes % 13.3 L, Monocytes % 7.3, Eosinophils % 2.7, Basophils % 0 L, Absolute Granulocytes 6.9 H, Absolute Lymphocytes 1.2, Absolute Monocytes 0.7 H, Absolute Eosinophils 0.2, Absolute Basophils 0, PUBS MCHC 33.6, Hepatitis A IgM Ab NONREACTIVE, Hep Bs Antigen NONREACTIVE, Hep B Core IgM Ab Conf NONREACTIVE, Hepatitis C Antibody NONREACTIVE, Acetaminophen < 10.0 L 12/05/16 0907: Anti-Smooth Muscle Ab Pending 12/05/16 0907: JESSIKA Titer Pending, Anti-Nuclear Antibody Pending, Infectious [place] Titer NEGATIVE Microbiology 12/05 1949 URINE ROUT: Urine Culture - RECD 12/05 1919 BLOOD: Blood Culture - RECD 12/05 1909 BLOOD: Blood Culture - RECD Assessment/Plan Assessment: Assessment 66 yo female with PMH of gastric bypass x2, cholangitis (06/2016), cholecystectmy and ERCP for choledoclithiasis (2011), DM type 2 (insulin dependent), HTN, and hypothyroidism present with 5 day history of jaundice, pruritus, and diarrhea. Patient has abnormal LFTs and bilirubin levels at time of admission (elevated AST/ALT/Alk Phos/GTT/Total Bilirubin/Direct Bilirubin). Differential diagnsis are obstructive jaundice, medication induced jaundice, acute viral hepatitis, autoimmune hepatitis, sphincter of oddi dysfuntion or stenosis leading to cholestasis. Plan: Plan Continue to follow closely for any neurological or encephalopathic changes. Repeat BEP to assess for hypokalemia Repeat hepatitis panel, hepatic function panel, and INR Follow up on Autoimmune Hepatitis Panel Follow up on Serology test CMV Blood cultures and urine culture pending Hold all hepatotoxic medications Continue maintenace fluid (NS with 20meq of K+) at 75ml/hr Continue regular diet Consult with Dr. Breaux in terms of management of her diabetes, will adjust her insulin dose according to Dr. Breaux Contineue diphenhydramine PRN for pruritus DVT prophylaxis at all times Patient is full code DALI SOUSA 12/29/16 1620: Attending MD Review Statement Attending Sign Off Attending Cosign Statement: I have: examined this patient, reviewed [facility] EMR data, discussd w/resident/PA/ POLYMER CHEMIST, discussed mgmt plan w/pt, agreed w/resident/PA/POLYMER CHEMIST.
[2016-12-06 08:48] LABS: GRANULOCYTE % 70.9 % (42.2-75.2); PLATELET COUNT 262 /CUMM (130-400)
[2016-12-06 13:53] VITALS: BP 112/80
--- NOTE | 2016-12-06 15:08 | PN- Housestaff ---
Subjective Follow-up For: Jaundice Subjective: Patient seen and examined bedside. She still endorses diffuse itching. However she denies any acute complaints of fever, chills, abdominal pain, nausea, vomiting, confusion, chest pain, palpitation, or dysuria. No Acute overnight event reported by nursing staff Review of Systems Constitutional: Reports: see HPI. Objective Last 24 Hrs of Vital Signs/I&O Vital Signs Date Time Temp Pulse Resp B/P Pulse O2 O2 Flow FiO2 Ox Delivery Rate 12/06 1353 97.9 70 18 112/80 96 Room Air 12/06 0655 97.6 62 20 110/64 94 Room Air 12/06 0038 75 95 12/06 0000 93 Room Air 12/05 2232 78 94 12/05 2120 98.5 69 20 126/62 93 Room Air 12/05 1842 Room Air 12/05 1826 98.4 84 20 114/50 93 Room Air 12/05 1740 85 20 99/50 95 Room Air Intake & Output 12/06 1600 12/06 0800 12/06 0000 Intake Total 1400 1140 675 Output Total 400 Balance 1400 1140 275 Intake, IV 600 600 225 Intake, Oral 800 540 450 Number 0 0 Bowel Movements Output, Urine 400 Patient 106.594 kg Weight Physical Exam General Appearance: Alert, Oriented X3, Cooperative Other Physical Findings: Skin jaundiced HEENT Atraumatic, EOMI Neck Supple, No JVD, No thryomegaly Lymphatic Axillary nl, Cervical nl Cardiovascular Regular Rate, Normal S1, Normal S2 Lungs Clear to Auscultation, Normal Air Movement Abdomen soft, slightly tender in the right upper quadrant, nondistended with normal active bowel sounds, no hepatosplenomegaly Neurological Normal Speech, Strength at 5/5 X4 Ext, Normal Tone Extremities No Clubbing, No Cyanosis, No Edema Current Medications: Current Medications Sig/Shayy Start time Last Medication Dose Route Stop Time Status Admin Budesonide/ 2 PUF BID 12/05 2200 AC 12/06 Formoterol Fumarate INH 0915 Cyanocobalamin 1,000 MCG DAILY 12/06 1000 AC 12/06 PO 0915 Diphenhydramine HCl 25 MG ONCE ONE 12/06 0915 DC 12/06 PO 12/06 0916 0934 Diphenhydramine HCl 25 MG Q6P PRN 12/05 1445 AC 12/06 PO 1245 Heparin Sodium 5,000 UNIT Q8 12/05 2200 AC 12/06 (Porcine) SC 1424 Insulin Aspart 0 TIDAC 12/05 1700 AC 12/06 SC 1131 Insulin Detemir 36 UNITS BID 12/06 1000 AC 12/06 SC 0933 Insulin Detemir 24 UNITS BID 12/05 2200 DC 12/05 SC 2131 Levothyroxine Sodium 0.112 MG DAILY AC 12/06 0700 AC 12/06 PO 0613 Montelukast Sodium 10 MG AT BEDTIME 12/05 220 AC 12/05 PO 2131 Patient Medication 1 ED .STK-MED ONE 12/06 1355 DC Teaching ED 12/06 1356 Potassium Chloride 20 MEQ ONCE ONE 12/06 0915 DC 12/06 PO 12/06 0916 0934 Potassium Chloride 20 MEQ ONCE ONE 12/06 0045 DC 12/06 PO 12/06 0046 0145 Potassium Chloride 20 MEQ Q13H 12/05 1730 AC 12/06 Sodium Chloride 1,000 ML IV 0630 Sodium Chloride 1,000 ML Q13H 12/05 1500 DC IV Last 24 Hrs of Lab/Pollo Results Last 24 Hrs of Labs/Mics: Laboratory Tests 12/06/16 0620: Anion Gap 12, Estimated GFR 41 L, BUN/Creatinine Ratio 23.8, Total Bilirubin 4.5 H, Direct Bilirubin 3.1 H, AST 258 H, ALT 286 H, Alkaline Phosphatase 708 H, Total Protein 5.6 L, Albumin 2.7 L, Amylase < 30 L, Lipase 37, PT 10.8, INR 1.03, CBC w Diff NO MAN DIFF REQ, RBC 3.84 L, MCV 78.0 L, MCH 26.4 L, RDW 16.7 H, MPV 9.1, Gran % 70.9, Lymphocytes % 17.1 L, Monocytes % 8.8, Eosinophils % 3.2, Basophils % 0 L, Absolute Granulocytes 4.3, Absolute Lymphocytes 1.0 L, Absolute Monocytes 0.5, Absolute Eosinophils 0.2, Absolute Basophils 0, PUBS MCHC 33.8 12/06/16 06: Infectious [place] Titer NEGATIVE 12/06/16 06: IgG Total Pending, IgG1 Pending, IgG2 Pending, IgG3 Pending, IgG4 Pending, Anti- Mitochondrial Ab Pending, CMV IgG Ab Pending, CMV IgM Ab Pending, EBV Capsid Ag IgG Ab Pending, EBV Capsid Ag IgM Ab Pending, EBV Nuclear Ag IgG Ab Pending, EBV Interpretation Pending 12/05/161909: Ceruloplasmin Pending 12/05/161909: Anion Gap 12, Estimated GFR 30 L, BUN/Creatinine Ratio 22.4, Magnesium 2.1, Iron 72, TIBC 337, Ferritin 243.0, Total Bilirubin 4.7 H, Direct Bilirubin 3.7 H, AST 444 H, ALT 364 H, Alkaline Phosphatase 799 H, Ammonia 13, Total Protein 5.8 L, Albumin 2.8 L, PT 11.6, INR 1.11 Microbiology 12/05 1949 URINE ROUT: Urine Culture - RES GRAM NEGATIVE RODS 12/05 1919 BLOOD: Blood Culture - RES 12/05 1909 BLOOD: Blood Culture - RES Assessment/Plan Assessment: This is a 66-year-old female with a significant medical history of biliary disease including choledocholithiasis, acute cholecystitis resulting in cholecystectomy ERCP in 2011, and a July 7-year-old admission for elevated LFTs which resulted in treatment for cholangitis with antibiotic treatment and an MRCP is presenting with complaints of painless jaundice shortness of breath. At the ED, vital signs were stable and patient was afebrile. However her lab work was remarkable for elevated liver enzymes in function tests. MRCP and abdominal ultrasound obtained was unremarkable for any biliary obstruction, pancreas pathology, common bile duct dilation, but did show some mild hepatic steatosis. Assessment and plan #Jaundice Patient is presenting with apparent clinical signs of scleral icterus and jaundice skin appearance with laboratory findings of elevated direct bilirubin. Even though patinet has cholestatic jaundice with elevated alk phosphate and direct biliribubin, Suggestive of obstructive etiology are not convincing as radiological finding did not show any signs of it and patient is only complaining of mild abdominal pain. Of note, patient remembers that he recently took levofloxacin (1 dose) for infection. It is possible the patient presentation and acuteness without any significant pain or fever could be suggestive of acute medication induced cholestatic jaundice. It is noted that patient is having a market improvement on her cholestatic lab results. There are few reported cases that we found during the trip such off levofloxacin induced cholestatic jaundice. We'll continue to trend LFTs tomorrow. We'll await further GI recommendations. Problem List: 1. Jaundice Pain Ratin Pain Location: diffuse skin irritation Pain Goal: Remain pain free Pain Plan: per pain pathway, refrain from APAP. Tomorrow's Labs & Rationales: LFTS Consulting Request: Consulting Specialty: Gastroenterology
--- NOTE | 2016-12-06 15:30 | PN- Att Addend ---
Attending MD Review Statement Attending Statement Attending MD Statement: examined this patient, discuss w/resident/PA/PREDATORY GAME HUNTER, agreed w/resident/PA/PREDATORY GAME HUNTER, reviewed EMR data (avail), discussed w/nursing Attending Assessment/Plan: Laboratory Tests 12/06/16619: Anion Gap 12, Estimated GFR 41 L, BUN/Creatinine Ratio 23.8, Total Bilirubin 4.5 H, Direct Bilirubin 3.1 H, AST 258 H, ALT 286 H, Alkaline Phosphatase 708 H, Total Protein 5.6 L, Albumin 2.7 L, Amylase < 30 L, Lipase 37, PT 10.8, INR 1.03, CBC w Diff NO MAN DIFF REQ, RBC 3.84 L, MCV 78.0 L, MCH 26.4 L, RDW 16.7 H, MPV 9.1, Gran % 70.9, Lymphocytes % 17.1 L, Monocytes % 8.8, Eosinophils % 3.2, Basophils % 0 L, Absolute Granulocytes 4.3, Absolute Lymphocytes 1.0 L, Absolute Monocytes 0.5, Absolute Eosinophils 0.2, Absolute Basophils 0, PUBS MCHC 33.8 12/06/16 0600: Infectious [place] Titer NEGATIVE 12/06/16 06: IgG Total Pending, IgG1 Pending, IgG2 Pending, IgG3 Pending, IgG4 Pending, Anti- Mitochondrial Ab Pending, CMV IgG Ab Pending, CMV IgM Ab Pending, EBV Capsid Ag IgG Ab Pending, EBV Capsid Ag IgM Ab Pending, EBV Nuclear Ag IgG Ab Pending, EBV Interpretation Pending 12/05/161909: Ceruloplasmin Pending 12/05/161909: Anion Gap 12, Estimated GFR 30 L, BUN/Creatinine Ratio 22.4, Magnesium 2.1, Iron 72, TIBC 337, Ferritin 243.0, Total Bilirubin 4.7 H, Direct Bilirubin 3.7 H, AST 444 H, ALT 364 H, Alkaline Phosphatase 799 H, Ammonia 13, Total Protein 5.8 L, Albumin 2.8 L, PT 11.6, INR 1.11 Vital Signs Date Time Temp Pulse Resp B/P Pulse O2 O2 Flow FiO2 Ox Delivery Rate 12/06 1353 97.9 70 18 112/80 96 Room Air 12/06 0655 97.6 62 20 110/64 94 Room Air 12/06 0038 75 95 02/24 0000 93 Room Air 12/05 2232 78 94 12/05 2120 98.5 69 20 126/62 93 Room Air 12/05 1842 Room Air 12/05 1826 98.4 84 20 114/50 93 Room Air 12/05 1740 85 20 99/50 95 Room Air 66 year old female with a PMH of obesity status post Leonard-en-Y bypass, diabetes mellitus 2 insulin-dependent, hypertension, hypothyroidism, obstructive sleep apnea on CPAP, history of choledocholithiasis status post ER CP in 2011,and cholecystectomy 2011, hospitalized for elevated LFTs in June 2016 at [facility], with MRCP negative for biliary pathology and then treated for acute cholangitis with complicated bacteremia with Escherichia coli plus enterococcus with 14 day course of doxycycline and Bactrim ,who presented to the [facility] with worsening shortness of breath, and mild abdominal pain and jaundice. Patient found to have elevated liver function tests along with jaundice on exam which is improving. Patient had MRCP as well as abdominal ultrasound done which did not show any biliary dilatation or pancreatic pathology except for steatosis in the liver. Next Assessment and plan- 1. jaundice-unclear etiology, patient has history of cholecystectomy done in 2011 and had MRCP as well as abdominal ultrasound does not show any biliary dilation. Gastroenterology consult was obtained and their input is appreciated. Patient could have sphincter of oddi dysfunction versus medication side effect. Patient did receive levofloxacin one dose before her symptoms started. There are few case reports of cholestatic jaundice with even single dose of levofloxacin. Discussed with patient the care plan. We will continue to follow her closely.
--- NOTE | 2016-12-06 15:57 | Patient Discharge Instructions ---
Discharge Instructions General Discharge Information You were seen/treated for: Significant elevation in liver enzymes (hepatitis). Jaundice Low potassium (hypokalemia) Acute kidney injury Watch for these problems: Persistent/progressive yellowing of skin. Worsening itching. Confusion, headache. Recurrent abdominal pain, nausea, vomiting. Fevers or chills Special Instructions: Please have blood work done within one week and copy your PCP and Dr. AZUL. Please take all your medications as directed. We have stopped your cholesterol medication as this can worsen her symptoms. We have also stopped your lamotrigine. Please follow up with your PCP and with GI within a week of discharge. Diet Continue normal diet: Yes Activity Full Activity/No Limits: Yes Acute Coronary Syndrome Inclusion Criteria At DC or during hospital stay patient has or had the following: ACS DIAGNOSIS No Discharge Core Measures Meds if any: Prescribed or Continued at Discharge Meds if any: NOT Prescribed or Continued at Discharge Congestive Heart Failure Inclusion Criteria At DC or during hospital stay patient has or had the following: CHF DIAGNOSIS No Discharge Core Measures Meds if any: Prescribed or Continued at Discharge Meds if any: NOT Prescribed or Continued at Discharge Cerebrovascular accident Inclusion Criteria At DC or during hospital stay patient has or had the following: CVA/TIA Diagnosis No Discharge Core Measures Meds if any: Prescribed or Continued at Discharge Meds if any: NOT Prescribed or Continued at Discharge Venous thromboembolism Inclusion Criteria VTE Diagnosis No VTE Type NONE VTE Confirmed by (Test) NONE Discharge Core Measures - Per Current guidelines, there needs to be overlap - treatment for the first 5 days of Warfarin therapy. - If discharged on Warfarin prior to 5 days of - overlap therapy, the patient will need to be - assessed for post discharge needs including - *Post discharge parental anticoagulation - *Warfarin and/or parental anticoagulation education - *Follow up date to check INR post discharge At least 5 days overlap therapy as Inpatient No Meds if any: Prescribed or Continued at Discharge Note: Overlap Therapy is Warfarin and Anticoagulant Meds if any: NOT Prescribed or Continued at Discharge
[2016-12-06 22:42] VITALS: BP 124/70
[2016-12-07 06:30] VITALS: BP 136/72
--- NOTE | 2016-12-07 08:48 | PN- Housestaff ---
HAILE QUIROZ,FREDO 12/07/16 0847: Subjective Follow-up For: Transaminitis Subjective: Patient seen and examined. She is seen lying flat in bed resting comfortably. She appears to be in no acute distress. She reports feeling better than when she was first admitted, however admits to extreme itchiness that is only minimally relieved with Benadryl. She did not sleep well last night and is requesting to be discharged as soon as possible. Otherwise she has no complaints. Additionally she denies any headache, fever, chills, chest pain, palpitations, shortness of breath, abdominal pain, nausea, vomiting, diarrhea. No overnight events reported. Review of Systems Constitutional: Reports: see HPI. Objective Last 24 Hrs of Vital Signs/I&O Vital Signs Date Time Temp Pulse Resp B/P Pulse O2 O2 Flow FiO2 Ox Delivery Rate 12/07 0630 98.6 71 20 136/72 97 Room Air 12/06 2242 98.1 63 20 124/70 96 12/06 1353 97.9 70 18 112/80 96 Room Air Intake & Output 12/07 1600 12/07 0800 12/07 0000 Intake Total 600 500 Output Total Balance 600 500 Intake, IV 500 300 Intake, Oral 100 200 Physical Exam General Appearance: Alert, Oriented X3, Cooperative, No Acute Distress Other Physical Findings: General -well-developed, well-nourished obese elderly woman in no acute distress HEENT - NCAT, PERRL, EOMI, anicteric sclera Cardio - S1, S2 w/o murmurs/gallops/rubs Resp - CTA bilaterally w/o wheezing/rhochi/crackles GI - soft, obese, nontender, nondistended, bowel sounds present Neuro - Awake and alert, CN II - XII grossly intact Extremities - no edema, pulses intact Skin-no visible rash, mild excoriations diffusely secondary to scratching Current Medications: Current Medications Sig/Shayy Start time Last Medication Dose Route Stop Time Status Admin Budesonide/ 2 PUF BID 12/05 2200 AC 12/07 Formoterol Fumarate INH 0911 Cyanocobalamin 1,000 MCG DAILY 12/06 1000 AC 12/07 PO 0911 Diphenhydramine HCl 50 MG Q6P PRN 12/07 1015 AC PO Diphenhydramine HCl 25 MG Q6P PRN 12/05 1445 DC 12/07 PO 0914 Heparin Sodium 5,000 UNIT Q8 12/05 2200 AC 12/07 (Porcine) SC 0603 Insulin Aspart 0 TIDAC 12/05 1700 AC 12/07 SC 0912 Insulin Detemir 36 UNITS BID 12/06 1000 AC 12/07 SC 0912 Levothyroxine Sodium 0.112 MG DAILY AC 12/06 0700 AC 12/07 PO 0603 Melatonin 10 MG AT BEDTIME 12/07 2200 AC PO Melatonin 5 MG ONE TIME ONE 12/07 0015 DC 12/07 PO 12/07 0016 0013 Montelukast Sodium 10 MG AT BEDTIME 12/05 2200 AC 12/06 PO 2053 Patient Medication 1 ED .STK-MED ONE 12/06 1355 DC Teaching ED 12/06 1356 Potassium Chloride 20 MEQ Q13H 12/05 1730 DC 12/06 Sodium Chloride 1,000 ML IV 2205 Last 24 Hrs of Lab/Pollo Results Last 24 Hrs of Labs/Mics: Laboratory Tests 12/07/16 0628: Anion Gap 14, Estimated GFR 55 L, BUN/Creatinine Ratio 17.0, Total Bilirubin 3.2 H, Direct Bilirubin 2.4 H, AST 174 H, ALT 243 H, Alkaline Phosphatase 758 H, Total Protein 6.3, Albumin 3.1 L, PT 10.5, INR 1.00 Assessment/Plan Assessment: Daily hepatic function testing demonstrates mild improvement in her elevated liver function tests. Case was discussed with Dr. Hobbs of gastroenterology whom recommended starting patient on cholestyramine with instruction to follow- up with Dr. Romo as an outpatient for further evaluation and assessment of the etiology of the patient's elevated transaminases. Patient does admit to persistent itchiness for which Benadryl was increased to every 6 hours as needed. Was increased to 10 mg before bed for symptoms of insomnia. Intravenous fluids were discontinued. Urine culture is growing gram-negative rods, urinalysis was sent, a she remains without urinary symptoms at this time. Patient is an anticipated discharge to home tomorrow with instruction to follow up with GI as above and to obtain repeat hepatic function testing on 12/10/16 for assessment of worsening/improving disease. Problem list: -Transaminitis, unknown etiology -Jaundice -Urine culture growing gram-negative rods -History of cholangitis/cholecystitis Plan: -General medicine -Continue home medications -Benadryl 25 mg by mouth every 6 hours when necessary for itching -Prednisone 10 mg by mouth daily -Daily LFTs while in hospital -Follow-up pending labs and serologies -GI consult -Outpatient follow-up with Dr. Romo -Outpatient hepatic function testing on 12/10/16 -Pain pathway -DVT prophylaxis -Anticipated discharge for tomorrow, follow-up hepatic function panel Problem List: 1. Transaminitis Pain Ratin Pain Location: None Pain Goal: Remain pain free Pain Plan: Pain pathway Tomorrow's Labs & Rationales: Hepatic function testing Consulting Request: Consulting Specialty: Gastroenterology FABBY HARE MD 12/07/16 1027: Attending MD Review Statement Attending Statement Attending MD Statement: examined this patient, discuss w/resident/PA/LAUNDERETTE ATTENDANT, agreed w/resident/PA/LAUNDERETTE ATTENDANT, reviewed EMR data (avail), discussed with nursing, discussed with case mgmt, reviewed images Attending Assessment/Plan: Patient is very uncomfortable because of the pruritus and the fact that she couldn't sleep all night. She is very keen on going home. She says at home she takes Benadryl 50 mg every 4 hours and melatonin 10 mg. I explained to her at length the elevated liver enzymes and the need to watch the mentation closely to make sure she's not going into impending hepatic failure and also the need to watch all medications that are metabolized through the liver. At this point I think we can safely stop her IV fluids and we can increase the Benadryl to 50 every 6 watching her mentation closely and increase the melatonin to 10 mg. Her liver enzymes are still elevated, she still has the jaundice as evidenced by the bili of 3.2 and the alkaline phosphatase of 758 of unclear etiology with a negative MRCP and a liver ultrasound that shows steatosis. We need GI follow- up. The question is if the liver enzymes stay around this range, would she be stable for discharge in a.m. She has no urinary complaints at all. Her urine culture shows gram-negative rods but the UA was not sent. I'll send a UA given that she is off antibiotics and follow closely.
[2016-12-07 08:53] LABS: PT 10.5 SEC (9.4-12.5)
[2016-12-07] MEDS ORDERED: QUESTRAN POWDE378 GM PO ×2 (10:43→10:51)
--- NOTE | 2016-12-07 10:47 | PN- Gastroenterology ---
Assessment/Plan Assessment/Recommendations: (*The patient was seen and examined. Extensive records reviewed. The patient is being seen in GI coverage for Dr. Romo.) 66-year-old female, with history of morbid obesity, post [facility]-en-Y bypass, insulin-dependent type 2 diabetes, hypertension, hypothyroidism, [place] on CPAP, DJD, anxiety, depression, cervical Ca, history of choledocholithiasis post ERCP (possibly with papillotomy) done through surgical port post GJ bypass & CCKY in 2011 at [facility], readmitted to [facility] in 06/2016, empirically treated for cholangitis then, based on Escherichia coli bacteremia plus Enterococcus (txd with 14 day course of Bactrim & Doxycycline), however 07/08/16: MRCP at [facility]- negative. The patient was admitted to [facility] 12/05/2016 for jaundice. A workup for cholangitis was negative. She had a normal white count with 12/05/2016: BC x 2- negative. MRCP without obstruction on admission. Has mild abdominal pain on admission which resolved, as did some mild diarrhea. There is no history of EtOH. Of note, the patient was started on Lamotrigine & Hydroxyzine her psychiatrist [employer]. (Uncertain if the Lamotrigine may have contributed to her LFTs vs. passing of gallstone, superimposed on steatohepatitis; it has been held). 03/02/2014: EGD/colonoscopy to [facility], per Dr. Brittany Briones- esophagus with benign inflammation 45 cm, duodenal and [facility]-en-Y small bowel biopsies- negative, post GJ bypass; pandiverticulosis coli, left side greater than right, random biopsies of terminal ileum and colon- negative. The patient claims she is no longer f/b Dr. Brittany Briones, whom she previously saw for GI/liver. 10/31/2015: [facility]/partial SB resection/partial gastrectomy/gastrojejunostomy/EGD & intraoperative liver biopsy per Dr. Arambula-unremarkable SB, moderate steatosis, mild steatohepatitis, periportal and focal early bridging fibrosis, stage 2-3/4. The patient's LFTs peaked on 12/05/2016, with T Hong 9.9/DBil 8.3, alk phos 987, AST 685, ALT 464. They continue to decline, but remain somewhat chronically abnormal. 04/02/2012: Normal IgA 233, tTG Ab- negative 03/04/2014: Quantitative HCVRNA RT IU/ML < 15 IU/mL, HCV RNA LOGIU/mL < 1.18 06/22/2014: HIV- negative 01/03/2016: B12 902, folate > 20, nl Cu 154, nl MMA 116, nl thiamine 105 04/02/2016: AMA- negative < 20, anti-LKM < 20, anti-smooth muscle Ab < 20. 12/05/2016: JESSIKA- negative 1:40, monospot- negative, *AMA- pending, *EBV/CMV- pending. 12/05/2016: normal ceruloplasmin 44, + GGT 424, [Tylenol] < 10; Hep A Ab, Hep Bs Ag, Hep C Ab, & Hep B core Ab- all negative; Fe 72, TIBC 337, Fe sat 21.4%, ferritin 243 12/05/2016: XR PORTABLE CHEST- No acute cardiopulmonary findings compared to 07/29/2016. 12/05/2016: US ABDOMEN LIMITED (RUQ)- Liver parenchyma appears diffusely hyperechoic - a finding typically due to steatosis. No evidence of hepatic mass, cirrhotic morphology, or bile duct dilatation. Post CCKY with CBD 2-3 mm. 12/05/2016: MR ABDOMEN CHOLANGIOPANCREATOGRAPHY (MRCP)- Normal MRCP. No pancreatic or biliary ductal abnormality seen. No evidence for obstruction or intraluminal filling defects. CBD 6 mm. Suggestion of fatty liver. *As of 12/07/2016, the patient's LFTs are improving. She has no signs or symptoms of cholangitis. Imaging studies have not shown any obstruction. She is hemodynamically stable and afebrile. She is tolerating a regular diet. She does have pruritus, despite Benadryl. She is mildly jaundiced. Her urine is slightly dark. Her stools are normal color. There is no overt GI bleeding or melena. She denies any abdominal pain, nausea, vomiting, confusion, increased abdominal girth, or increased peripheral edema. There are no signs of encephalopathy. *Most likely, the patient passed a small gallstone. She has no signs or symptoms of cholangitis. LFTs are improving. Her only complaint is pruritus. The above is superimposed on steatohepatitis. Additionally, there may been a minor component of elevated LFTs from Lamotrigine. SUGGEST: Continue low fat, 2 g sodium, diabetic diet. *Add Questran Light 4g po TID, 1/2 hr before meals, for pruritus (as this may interfere with the absorption of her other medications, would try to give other medications either 1 hour before or more than 2 hours after Questran Light, if possible). *Await serologies, which are pending. Add bariatric supplements (I.e.- B12/folate/thiamine/Fe/Ca2+ with Vit D, etc). Agree with holding Lamotrigine. Consider adding Vitamin E 800 IU po daily for fatty liver. *As the patient is clinically stable and her LFTs are declining, okay from GI perspective for discharge to home today. *Outpatient follow-up with Dr. Romo. Further inpatient GI follow up as needed. Problem List: 1. Abnormal LFTs 2. Steatohepatitis 3. Anemia 4. Malnutrition 5. H/O bypass gastrojejunostomy Subjective Subjective: (*The patient was seen and examined. Extensive records reviewed. The patient is being seen in GI coverage for Dr. Romo.) *As of 12/07/2016, the patient's LFTs are improving. She has no signs or symptoms of cholangitis. Imaging studies have not shown any obstruction. She is hemodynamically stable and afebrile. She is tolerating a regular diet. She does have pruritus, despite Benadryl. She is mildly jaundiced. Her urine is slightly dark. Her stools are normal color. There is no overt GI bleeding or melena. She denies any abdominal pain, nausea, vomiting, confusion, increased abdominal girth, or increased peripheral edema. Review of Systems: Full 14 point review of systems otherwise noncontributory and as above, except for + pruritus & icterus. Constitutional: Denies: weight loss, fevers, chills. EENTM: Reports: icterus. Cardiovascular: Denies: chest pain, edema, orthopena. Respiratory: Denies: cough, hemoptysis, orthopnea, shortness of breath. GI: Denies: abdominal pain, nausea, vomiting. Skin: Reports: jaundice & pruritus. Neurological/Psychological: Denies: ataxia, confusion, dementia. Objective Vital Signs and I&Os Vital Signs Date Time Temp Pulse Resp B/P Pulse O2 O2 Flow FiO2 Ox Delivery Rate 12/07 0630 98.6 71 20 136/72 97 Room Air 12/06 2242 98.1 63 20 124/70 96 12/06 1353 97.9 70 18 112/80 96 Room Air Intake & Output 12/07 0400 12/06 0400 12/05 0400 Intake Total 416 698 9654 675 240 Output Total 400 Balance 161 021 6351 275 240 Intake, IV 935 104 0012 225 Intake, Oral 443 582 7027 450 240 Number 0 Bowel Movements Output, Urine 400 Patient 235 lb 235 lb Weight Physical Exam: Well-developed, slightly malnourished, obese female, in no apparent distress. Sclera mildly icteric. Conjunctiva pink. Oropharynx clear. No oral thrush. No aphthous ulcers.There is no adenopathy, thyromegaly, or JVD. No peripheral stigmata of inflammatory bowel disease or chronic liver disease on exam, except for perhaps a faint spider on the anterior chest wall. No CVA tenderness. Breast & pelvic: API. Lungs: clear to A&P. Heart exam: regular rate rhythm, S1 and S2, without any murmur. Abdominal exam: normal bowel sounds, soft obese belly, nontender, without guarding or rebound. Multiple scars. No mass. No organomegaly. No fluid shift. No pulsatile mass. No epigastric bruit. Repeat digital rectal exam: deferred (API). Extremities: without cyanosis or clubbing. Trace LE pedal edema B/L. +DJD. Post TKR. No palpable cords. No Dupuytren's contractures. No palmar erythema. No tremor. No asterixis. B/L ALPS. Distal pulses 2+ bilaterally. DTRs 2+ bilaterally. Alert and oriented x 3. Current Medications: Current Medications Sig/Shayy Start time Last Medication Dose Route Stop Time Status Admin Budesonide/ 2 PUF BID 12/05 2199 AC 12/07 Formoterol Fumarate INH 0911 Cyanocobalamin 1,000 MCG DAILY 12/06 1000 AC 12/07 PO 0911 Diphenhydramine HCl 50 MG Q6P PRN 12/07 1015 AC 12/07 PO 1242 Diphenhydramine HCl 25 MG Q6P PRN 12/05 1445 DC 12/07 PO 0914 Heparin Sodium 5,000 UNIT Q8 12/05 2199 AC 12/07 (Porcine) SC 1238 Insulin Aspart 0 TIDAC 12/05 1700 AC 12/07 SC 1238 Insulin Detemir 36 UNITS BID 12/06 1000 AC 12/07 SC 0912 Levothyroxine Sodium 0.112 MG DAILY AC 12/06 0700 AC 12/07 PO 0603 Melatonin 10 MG AT BEDTIME 12/07 220 AC PO Melatonin 5 MG ONE TIME ONE 12/07 0015 DC 12/07 PO 12/07 0016 0013 Montelukast Sodium 10 MG AT BEDTIME 12/05 2199 AC 12/06 PO 205 Patient Medication 1 ED .STK-MED ONE 12/06 1355 DC Teaching ED 12/06 1356 Potassium Chloride 20 MEQ Q13H 12/05 1730 DC 12/06 Sodium Chloride 1,000 ML IV 2204 Results Pertinent Lab Results: Laboratory Tests 12/07 12/06 12/06 0628 0620 0600 Chemistry Sodium (137 - 145 mmol/L) 143 139 Potassium (3.5 - 5.1 mmol/L) 3.9 3.4 L Chloride (98 - 107 mmol/L) 105 102 Carbon Dioxide (22 - 30 mmol/L) 25 25 Anion Gap (5 - 16) 14 12 BUN (7 - 17 mg/dL) 17 31 H Creatinine (0.5 - 1.0 mg/dL) 1.0 1.3 H Estimated GFR (>60 ml/min) 55 L 41 L BUN/Creatinine Ratio (7 - 25 %) 17.0 23.8 Total Bilirubin (0.2 - 1.3 mg/dL) 3.2 H 4.5 H Direct Bilirubin (< 0.4 mg/dL) 2.4 H 3.1 H AST (14 - 36 U/L) 174 H 258 H ALT (9 - 52 U/L) 243 H 286 H Alkaline Phosphatase (<127 U/L) 758 H 708 H Total Protein (6.3 - 8.2 g/dL) 6.3 5.6 L Albumin (3.5 - 5.0 g/dL) 3.1 L 2.7 L Amylase (30 - 110 U/L) < 30 L Lipase (23 - 300 U/L) 37 Coagulation PT (9.4 - 12.5 SEC) 10.5 10.8 INR (0.90 - 1.19) 1.00 1.03 Hematology CBC w Diff NO MAN DIFF REQ WBC (4.8 - 10.8 /CUMM) 6.1 RBC (4.20 - 5.40 /CUMM) 3.84 L Hgb (12.0 - 16.0 G/DL) 10.1 L Hct (37 - 47 %) 30.0 L MCV (81.0 - 99.0 FL) 78.0 L MCH (27.0 - 31.0 PG) 26.4 L RDW (11.5 - 14.5 %) 16.7 H Plt Count (130 - 400 /CUMM) 262 MPV (7.4 - 10.4 FL) 9.1 Gran % (42.2 - 75.2 %) 70.9 Lymphocytes % (20.5 - 51.1 %) 17.1 L Monocytes % (1.7 - 9.3 %) 8.8 Eosinophils % (0 - 5 %) 3.2 Basophils % (0.0 - 2.0 %) 0 L Absolute Granulocytes (1.4 - 6.5 /CUMM) 4.3 Absolute Lymphocytes (1.2 - 3.4 /CUMM) 1.0 L Absolute Monocytes (0.10 - 0.60 /CUMM) 0.5 Absolute Eosinophils (0.0 - 0.7 /CUMM) 0.2 Absolute Basophils (0.0 - 0.2 /CUMM) 0 PUBS MCHC (33.0 - 37.0 G/DL) 33.8 Serology Infectious [place] Titer (NEGATIVE) NEGATIVE 12/06 12/05 12/05 12/05 0600 1910 1910 0908 Chemistry Sodium (137 - 145 mmol/L) 135 L 137 Potassium (3.5 - 5.1 mmol/L) 3.3 L 3.0 L Chloride (98 - 107 mmol/L) 97 L 98 Carbon Dioxide (22 - 30 mmol/L) 26 25 Anion Gap (5 - 16) 12 15 BUN (7 - 17 mg/dL) 38 H 41 H Creatinine (0.5 - 1.0 mg/dL) 1.7 H 1.6 H Estimated GFR (>60 ml/min) 30 L 32 L BUN/Creatinine Ratio (7 - 25 %) 22.4 25.6 H Glucose (65 - 99 mg/dL) 208 H Calcium (8.4 - 10.2 mg/dL) 9.1 Magnesium (1.6 - 2.3 mg/dL) 2.1 Iron (37 - 170 ug/dL) 72 TIBC (265 - 497 ug/dL) 337 Ferritin (11.1 - 264 ng/mL) 243.0 Total Bilirubin (0.2 - 1.3 mg/dL) 4.7 H 9.9 H Direct Bilirubin (< 0.4 mg/dL) 3.7 H 8.3 H GGT (12 - 43 U/L) 424 H AST (14 - 36 U/L) 444 H 685 H ALT (9 - 52 U/L) 364 H 464 H Alkaline Phosphatase (<127 U/L) 799 H 987 H Ammonia (9 - 30 umol/L) 13 Troponin I (< 0.11 ng/ml) < 0.01 Total Protein (6.3 - 8.2 g/dL) 5.8 L 6.5 Albumin (3.5 - 5.0 g/dL) 2.8 L 3.2 L Globulin (1.9 - 4.2 gm/dL) 3.3 Albumin/Globulin Ratio (1.1 - 2.2 %) 1.0 L Ceruloplasmin (18 - 53 mg/dL) 44 Coagulation PT (9.4 - 12.5 SEC) 11.6 12.5 INR (0.90 - 1.19) 1.11 1.19 Hematology CBC w Diff NO MAN DIFF REQ WBC (4.8 - 10.8 /CUMM) 9.0 RBC (4.20 - 5.40 /CUMM) 4.35 Hgb (12.0 - 16.0 G/DL) 11.3 L Hct (37 - 47 %) 33.6 L MCV (81.0 - 99.0 FL) 77.3 L MCH (27.0 - 31.0 PG) 26.0 L RDW (11.5 - 14.5 %) 16.1 H Plt Count (130 - 400 /CUMM) 318 MPV (7.4 - 10.4 FL) 9.4 Gran % (42.2 - 75.2 %) 76.7 H Lymphocytes % (20.5 - 51.1 %) 13.3 L Monocytes % (1.7 - 9.3 %) 7.3 Eosinophils % (0 - 5 %) 2.7 Basophils % (0.0 - 2.0 %) 0 L Absolute Granulocytes (1.4 - 6.5 /CUMM) 6.9 H Absolute Lymphocytes (1.2 - 3.4 /CUMM) 1.2 Absolute Monocytes (0.10 - 0.60 /CUMM) 0.7 H Absolute Eosinophils (0.0 - 0.7 /CUMM) 0.2 Absolute Basophils (0.0 - 0.2 /CUMM) 0 PUBS MCHC (33.0 - 37.0 G/DL) 33.6 Immunology IgG Total Pending IgG1 Pending IgG2 Pending IgG3 Pending IgG4 Pending Anti-Mitochondrial Ab Pending Serology CMV IgG Ab Pending CMV IgM Ab Pending EBV Capsid Ag IgG Ab Pending EBV Capsid Ag IgM Ab Pending EBV Nuclear Ag IgG Ab Pending EBV Interpretation Pending Hepatitis A IgM Ab (NONREACTIVE) NONREACTIVE Hep Bs Antigen (NONREACTIVE) NONREACTIVE Hep B Core IgM Ab Conf (NONREACTIVE) NONREACTIVE Hepatitis C Antibody (NONREACTIVE) NONREACTIVE Toxicology Acetaminophen (10.0 - 30.0 ug/mL) < 10.0 L 12/05 12/05 0907 0907 Immunology JESSIKA Titer ND Anti-Nuclear Antibody (NEG,1:40) NEG 1:40 IFA ASSAY Anti-Smooth Muscle Ab Pending Serology Infectious [place] Titer (NEGATIVE) NEGATIVE Imaging/Other Studies: 12/05/2016: XR PORTABLE CHEST- No acute cardiopulmonary findings compared to 07/29/2016. 12/05/2016: US ABDOMEN LIMITED (RUQ)- IMPRESSION: Liver parenchyma appears diffusely hyperechoic -- a finding typically due to steatosis. No evidence of hepatic mass, cirrhotic morphology, or bile duct dilatation. Post CCKY with CBD 2-3 mm. 12/05/2016: MR ABDOMEN CHOLANGIOPANCREATOGRAPHY (MRCP)- Normal MRCP. No pancreatic or biliary ductal abnormality seen. No evidence for obstruction or intraluminal filling defects. CBD 6 mm. Suggestion of fatty liver.
[2016-12-07 13:59] VITALS: BP 136/56
[2016-12-07 23:43] VITALS: BP 150/70
[2016-12-08 06:35] VITALS: BP 144/62
--- NOTE | 2016-12-08 07:17 | PN- Housestaff ---
TARYN QUIROZ,[facility] 12/08/16 0717: Subjective Follow-up For: Transaminitis Subjective: Patient reports no symptoms except for itching and reports Benadryl has a bad taste and she can't keep it down. Also she wants to go home as she can not sleep in the hospital. Reports no pain and no issues overnight. She has had sugar of 61 this am and is having some juice and waiting for breakfast. Overall, she wants to know what is going on with her and how she can prevent similar problem happening in the future. Also she wants something to be given for her itch which is more effective and be a pill. Review of Systems Constitutional: Denies: chills, fever, weakness. EENTM: Reports: no symptoms. Cardiovascular: Reports: no symptoms. Respiratory: Reports: no symptoms. Gastrointestinal: Reports: no symptoms. Genitourinary: Reports: no symptoms. Musculoskeletal: Reports: no symptoms. Skin: Reports: jaundice. Objective Last 24 Hrs of Vital Signs/I&O Vital Signs Date Time Temp Pulse Resp B/P Pulse O2 O2 Flow FiO2 Ox Delivery Rate 12/08 0635 98.3 59 20 144/62 96 Room Air 12/08 0034 69 96 12/07 2343 97.4 52 20 150/70 96 CPAP 12/07 1359 98.6 67 20 136/56 97 Intake & Output 12/08 0800 12/08 0000 12/07 1600 Intake Total 477 071 8347 Output Total 150 640 Balance 273 578 9613 Intake, Oral 453 958 1729 Output, Urine 150 640 Physical Exam General Appearance: Alert, Oriented X3, Cooperative, No Acute Distress Skin: icteric sclera HEENT: Atraumatic, EOMI Neck: Supple, No JVD Cardiovascular: Normal S1, Normal S2, No Murmurs Lungs: Clear to Auscultation, Normal Air Movement Abdomen: Normal Bowel Sounds, Soft, No Tenderness Neurological: Normal Speech, Normal Tone, Sensation Intact Extremities: No Cyanosis, No Edema, Normal Pulses Vascular: Normal Pulses, Pulses Symmetrical Current Medications: Current Medications Sig/Shayy Start time Last Medication Dose Route Stop Time Status Admin Budesonide/ 2 PUF BID 12/05 2199 AC 12/07 Formoterol Fumarate INH 2118 Cholecalciferol 400 IU DAILY 12/07 2229 AC PO Cholestyramine Resin 1 PAC BID 02/25 2200 DC PO Cholestyramine Resin 1 PAC BID 12/07 1700 AC PO Cyanocobalamin 1,000 MCG DAILY 12/06 1000 AC 12/07 PO 0911 Diphenhydramine HCl 50 MG .STK-MED ONE 12/07 2015 DC PO 12/07 2017 Diphenhydramine HCl 50 MG Q6P PRN 12/07 1015 AC 12/08 PO 0440 Diphenhydramine HCl 25 MG .STK-MED ONE 12/07 0911 DC PO 12/07 0912 Diphenhydramine HCl 25 MG Q6P PRN 12/05 1445 DC 12/07 PO 0914 Folic Acid 1 MG DAILY 12/08 1000 AC PO Heparin Sodium 5,000 UNIT Q8 12/05 2200 AC 12/08 (Porcine) SC 0508 Insulin Aspart 0 TIDAC 12/05 1700 AC 12/07 SC 1652 Insulin Detemir 36 UNITS BID 12/06 1000 AC 12/07 SC 2120 Levothyroxine Sodium 0.112 MG DAILY AC 12/06 0700 AC 12/08 PO 0508 Melatonin 10 MG AT BEDTIME 12/07 2200 AC 12/07 PO 2118 Montelukast Sodium 10 MG AT BEDTIME 12/05 2200 AC 12/07 PO 2119 Potassium Chloride 20 MEQ Q13H 12/05 1730 DC 12/06 Sodium Chloride 1,000 ML IV 2205 Vitamin E 800 IU DAILY 12/07 2230 AC PO Last 24 Hrs of Lab/Pollo Results Last 24 Hrs of Labs/Mics: Laboratory Tests 12/07/16 1819: Urine Color YEL, Urine Clarity CLEAR, Urine pH 6.0, Ur Specific [place] 1.020, Urine Protein NEG, Urine Ketones NEG, Urine Nitrite POS H, Urine Bilirubin POS@ ICTO H, Urine Urobilinogen 1.0, Ur Leukocyte Esterase TRACE H, Ur Microscopic SEDIMENT EXAMINED, Urine RBC RARE, Urine WBC 15-25 H, Ur Epithelial Cells MANY H, Urine Hemoglobin NEG, Urine Glucose 250 H Assessment/Plan Assessment: Daily hepatic function testing demonstrates mild improvement in her elevated liver function tests. Case was discussed with Dr. Hobbs of gastroenterology whom recommended starting patient on cholestyramine with instruction to follow- up with Dr. Romo as an outpatient for further evaluation and assessment of the etiology of the patient's elevated transaminases. Patient does admit to persistent itchiness for which Benadryl was increased to every 6 hours as needed. Was increased to 10 mg before bed for symptoms of insomnia. Intravenous fluids were discontinued. Urine culture is growing gram-negative rods, urinalysis was sent, a she remains without urinary symptoms at this time. Patient is an anticipated discharge to home tomorrow with instruction to follow up with GI as above and to obtain repeat hepatic function testing on 12/10/16 for assessment of worsening/improving disease. Problem list: -Transaminitis, unknown etiology -Jaundice -Urine culture growing gram-negative rods -History of cholangitis/cholecystitis Plan: -General medicine -Continue home medications -Benadryl 25 mg by mouth every 6 hours when necessary for itching -Prednisone 10 mg by mouth daily -Daily LFTs while in hospital -Follow-up pending labs and serologies -GI consult -Outpatient follow-up with Dr. Romo -Outpatient hepatic function testing on 12/10/16 -Pain pathway -DVT prophylaxis -Anticipated discharge for tomorrow, follow-up hepatic function panel Problem List: 1. Hyperbilirubinemia 2. Transaminitis 3. Jaundice Pain Ratin Pain Location: none Pain Goal: Pain 4 or less Pain Plan: mild pp Tomorrow's Labs & Rationales: none Consulting Request: Consulting Specialty: Gastroenterology FABBY HARE MD 12/08/16 0804: Attending MD Review Statement Attending Statement Attending MD Statement: examined this patient, discuss w/resident/PA/SPLUNK DEVELOPER, agreed w/resident/PA/SPLUNK DEVELOPER, reviewed EMR data (avail), discussed with nursing, discussed with case mgmt, reviewed images Attending Assessment/Plan: Patient is eating breakfast. She is eager to go home. She continues to have the pruritus and the Questran she says was intolerable. I sat down with her and explained at length the symptomatic relief that the Questran offers. They couldn't get her bloods drawn today. She is at [facility]. She doesn't want them trying again. She understands that we closely need to follow the LFTs but she feels at this point that the discomfort outweighs any benefits. She does understand the need for close follow-up. At this point her pressure has been okay off IV fluids. It is actually creeping up and her legs are getting slowly swollen and she is eager to restart her antihypertensives namely enalapril and hydrochlorothiazide and I think we are comfortable to do that. We went over her medication list at length and the only new medicine that is about a month old is the lamotrigine. At this point we going to hold the lamotrigine and statin. She is going to restart all of her other medications and she stable for discharge. We've given her a prescription to check her LFTs on Friday the and report results to Dr. Romo. I stressed close outpatient GI follow-up within the week to follow-up on the LFTs. She understands that the MRCP was normal and we do not have a cause for why she developed this elevated liver enzymes which are slowly coming down. TTS explaining all meds, implications of elevated liver enzymes, and need for close f/u 33 minutes
[2016-12-13 10:42] LABS: CYTOMEGALOVIRUS ANTIBODY IGG < OR = 0.90 (()); CYTOMEGALOVIRUS ANTIBODY IGM <0.2 (())
--- NOTE | 2016-12-17 07:08 | Discharge Summary ---
Visit Information Visit Dates Admission Date: 12/05/16 Discharge Date: 12/08/16 Hospital Course Course Attending Physician: LARS QUIROZ,DALI Eastman Primary Care Physician: NESTOR VASQUEZ DO Consulting Request: Consulting Specialty: Gastroenterology Hospital Course: This is a 66 year old very pleasent lady with with a PMH of diabetes mellitus 2 insulin-dependent, hypertension, hypothyroidism, obesity status post Leonard-en-Y bypass, obstructive sleep apnea on CPAP, history of choledocholithiasis status post ER CP in 2011,and cholecystectomy 2011, hospitalized for elevated LFTs in June 2016 at [facility], with MRCP negative for biliary pathology and then treated for acute cholangitis with complicated bacteremia with E.Coli and enterococcus requiring doxycycline and Bactrim (14 days) , presented at [facility] with c/o of worsening shortness of breath, and jaundice. At the ED, vital signs were stable and patient was afebrile. However her lab work was remarkable for markedly abnormal increased liver function tests(AST:685 , ANC of 464, alkaline phosphatase of 987, Bilirubin of 9.9 with direct bilirubin of 8.3, creatinine 1.6, alkaline phosphatase of 987). APAP toxicology levels were unremarkable (<10) MRCP and abdominal ultrasound obtained were however unremarkable for any biliary obstruction, pancreas pathology, or marked common bile duct dilation, but did show some mild hepatic steatosis. Pt was admitted to general medicine floor for evaluation and treatment of transaminitis with jaundice. Hepatitis and autoimmune workup ( AMA, anti-smooth muscle antibody, antimitochondrial antibody, CMV and EBV antibodies) was sent out and GI was consulted. Due to recent hx of cholangitis, there was a low threshold to start patient on ABX. However patient remianed afebrile with no prominent abdominal pain or leukocytosis. Patient did complan of intense pruritis and was given Diphenhydramine IV as needed. Patient LFTs showed some slight downtrending the following day. It was still not clear what was the cause of patients cholestatic jaundice. Possible etiology considered was drug induced jaundice vs possible passage of residual stone. Pt had recently taken a dose of floroquinolones which has been implicated in some literature to induce cholestatic/hepatocellular jaundice. Her Lamotrigine use was also thought to have contributed to her elevated LFTs. Pt also exhibited CHRISTIAN which subsequently improved after adequate hydration. On the 4th day of hospitalization, based on GI reccomendations, pt was discharged as her LFTs did not trend up, but showed slight down trending, even though they were still markedly high. She also remained afebrile with no leukocytosis. Pt was discharged with instruction to f/ u with GI within 1 week and was also given a script for outpatient lab for LFTs. Pt was also instructed to not take her Lamotrigine and Statin (which were held on admission) and was given an Rx for Questran for itching. Allergies: Coded Allergies: Penicillins (Severe, ANAPHYLAXIS 02/28/16) cephalexin (Mild, RASH 02/28/16) erythromycin base (Mild, RASH 02/28/16) Sulfa (Sulfonamide Antibiotics) (ANAPHYLAXIS 05/10/16) sulfamethoxazole (From BACTRIM) (ANAPHYLAXIS 05/10/16) trimethoprim (From BACTRIM) (ANAPHYLAXIS 05/10/16) Pertinent Lab Results: SERVICE DATE: 12/05/16 EXAM TYPE: MRI - MRI-ABDOMEN EXAMINATION: MR ABDOMEN CHOLANGIOPANCREATOGRAPHY CLINICAL INFORMATION: Elevation in transaminases, bilirubin, alkaline phosphatase COMPARISON: Ultrasound from earlier today. CT from 07/06/2016 TECHNIQUE: Multiple routine MRI sequences through the abdomen were obtained. Heavily T2 weighted images were performed utilizing a dedicated MRCP technique. Contrast was not utilized for the study. FINDINGS: Biliary system: The common bile duct is normal in course and caliber with no evidence for intra-or extrahepatic biliary ductal dilatation. The common bile duct measures 0.6 cm in diameter. No intraluminal filling defects are appreciated. Gallbladder: Absent. Pancreatic duct: The pancreatic duct is normal in course and caliber with no evidence for pancreatic ductal obstruction. There is a part of signal on out of phase imaging involving the liver parenchyma consistent with hepatic steatosis. The liver is normal in size, shape, and signal. No focal hepatic lesion identified. No visualized abnormalities are seen in the kidneys, adrenals, pancreatic parenchyma, or spleen. IMPRESSION: Normal MRCP. No pancreatic or biliary ductal abnormality seen. No evidence for obstruction or intraluminal filling defects. DICTATED BY: ADÁN QUIROZ,CHASE Disposition Summary Disposition Principal Diagnosis: Hepatitis Additional Diagnosis: CHRISTIAN Discharge Disposition: home or self care Discharge Instructions General Discharge Information Code Status: Full Code Patient's Diet: REGULAR Patient's Activity: TOLERATED Follow-Up Instructions/Appts: PT was to f/u with GI in 1 Week. Medications at Discharge Discharge Medications: Stop taking the following medications: Atorvastatin Calcium (Lipitor) 20 MG TABLET ORAL DAILY Lamotrigine (Lamictal) 25 MG TABLET ORAL TWICE DAILY Continue taking these medications: Montelukast Sodium (Singulair) 10 MG TABLET 1 Tablet ORAL AT BEDTIME Comments: Last Taken: 12/08/16 Time: 9PM Fluticasone Propionate/Salme (Advair Hfa 115-21 Mcg Inhaler) 115 MCG-21 MCG/ ACTUATION HFA.AER.AD 2 Puff ORAL TWICE DAILY Comments: Last Taken: 12/08/16 Time: 10AM Cyanocobalamin (Vitamin B-12) (Vitamin B-12) 500 MCG TAB.SUBL 1 Tablet ORAL DAILY Comments: Last Taken: 12/08/16 Time: 10AM Diphenhydramine HCl (Benadryl) 25 MG CAPSULE 2 Capsule ORAL Every night Comments: Last Taken: 12/08/16 Time: 5AM Potassium Gluconate (Potassium) 595 MG (99 MG) TABLET 1 Tablet ORAL DAILY Comments: NOT GIVEN WHILE IN HOSPITAL Insulin Glargine,Hum.rec.anlog (Lantus Solostar) 100 UNIT/ML (3 ML) INSULN.PEN 36 Unit Inject into fatty tissue Every night Comments: Last Taken: 12/08/16 Time: 10AM LEVEMIR GIVEN SUBSTITUTION WHILE IN HOSPITAL Insulin Lispro (Humalog) (Unknown Strength) VIAL Unknown Dose SEE SLIDING SCALE Qty = 40 Comments: Last Taken: 12/07/16 Time: 5PM NOVOLOG GIVEN SUBSTITUTION WHILE IN HOSPITAL Lactobacillus Acidophilus (Probiotic) 1 EACH CAPSULE 1 Capsule ORAL TWICE DAILY Comments: NOT GIVEN WHILE IN HOSPITAL [place]-3 Fatty Acids ([place]-3) (Unknown Strength) CAPSULE 1,200 Milligram ORAL DAILY Comments: NOT GIVEN WHILE IN HOSPITAL Pantoprazole Sodium (Pantoprazole Sodium) 40 MG TABLET.DR 1 Tablet ORAL TWICE DAILY Comments: NOT GIVEN WHILE IN HOSPITAL Hydrochlorothiazide (Hydrochlorothiazide) 25 MG TABLET 1 Tablet ORAL DAILY Comments: NOT GIVEN WHILE IN HOSPITAL Levothyroxine Sodium (Synthroid) (Unknown Strength) TABLET 112 Microgram ORAL DAILY Comments: Last Taken: 12/08/16 Time: 5AM Magnesium Oxide (Magnesium) (Unknown Strength) CAPSULE Unknown Dose ORAL TWICE DAILY Comments: NOT GIVEN WHILE IN HOSPITAL Melatonin (Melatonin) 10 MG TABLET 2 Tablet ORAL Every night Comments: Last Taken: 12/08/16 Time: 9PM Hydroxyzine HCl (Hydroxyzine HCl) 25 MG TABLET 1 Tablet ORAL THREE TIMES DAILY as needed for ALLERGIES Comments: NOT GIVEN WHILE IN HOSPITAL Gabapentin (Gabapentin) 100 MG CAPSULE 2 Capsule ORAL EVERY SIX HOURS as needed for NEUROPATHY Comments: NOT GIVEN WHILE IN HOSPITAL Quetiapine Fumarate (Seroquel) 25 MG TABLET 1 Tablet ORAL Every night Comments: NOT GIVEN WHILE IN HOSPITAL Escitalopram Oxalate (Lexapro) 10 MG TABLET 1 Tablet ORAL DAILY Comments: NOT GIVEN WHILE IN HOSPITAL Enalapril Maleate (Vasotec) 10 MG TABLET 1 Tablet ORAL DAILY Comments: NOT GIVEN WHILE IN HOSPITAL Start taking the following new medications: Cholestyramine (With Sugar) (Questran Powder) 4 GRAM POWDER 4 G ORAL TWICE DAILY Qty = 14 No Refills Comments: NOT GIVEN WHILE IN HOSPITAL Copies To: NESTOR VASQUEZ DO Attending Review Statement Documenting Attending: DALI SOUSA MD Other Findings: Agree with the above discharge summary.
== END 2016-12-08 12:10 | DRG 442 ==
LOC: ENRESERVTM → ENRESERVDT → ERH 08:47 → 2NA 13:49 → ENPENDDIS 13:49 → ERHI 13:49 → 2NA 17:52
PROVIDERS: Emergency Medicine; Internal Medicine; Internal Medicine Nephrology; ADMIT Hospitalist
PROC: BF37ZZZ Magnetic Resonance Imaging (MRI) of Pancreas (ICD-10-PCS; principal; 2016-12-05)
DX: R94.5 Abnormal results of liver function studies (principal); N17.9 Acute kidney failure, unspecified; E11.22 Type 2 diabetes mellitus with diabetic chronic kidney disease; Z68.41 Body mass index [BMI] 40.0-44.9, adult; B17.9 Acute viral hepatitis, unspecified; Z79.4 Long term (current) use of insulin; E66.9 Obesity, unspecified; E86.0 Dehydration; I12.9 Hypertensive chronic kidney disease with stage 1 through stage 4 chronic kidney disease, or unspecified chronic kidney disease; N18.9 Chronic kidney disease, unspecified; J45.909 Unspecified asthma, uncomplicated; E03.9 Hypothyroidism, unspecified; G47.33 Obstructive sleep apnea (adult) (pediatric); F41.8 Other specified anxiety disorders
CPT/HCPCS: 2NASP; 74181; 83516; 83520; 86644; 86645; 81001; 82436; 87040; 87086; 93005; 93010; 96374; G0480; J1200; J1644; J1815; J3490

== ENCOUNTER → 2017-04-16 | Day surgery (SDC) | payer OTHER ==
[~2017-04-16] VITALS: Ht 162.6 cm; Wt 115.2 kg
[~2017-04-16] MED LIST changes: +ATIVAN0.5 M1 PO; +GABAPENTIN100 M2 PO; +HYDROXYZINE HCL25 M2 PO; +LAMICTAL25 M1 PO; +LEXAPRO10 M1 PO; +QUESTRAN POWDE378 GM PO; +SEROQUEL25 M1 PO; +VASOTEC10 MG PO; +ZOLOFT100 M1 PO
--- NOTE | 2017-04-16 08:11 | Operative Report ---
Operative/Inv Procedure Report Surgery Date: 04/16/17 Name of Procedure: Cataract extraction lens implantation left eye Pre-Operative Diagnosis: Age-related cataract left eye 20/40 vision 20/80 glare vision Post-Operative Diagnosis: Same Estimated Blood Loss: none Surgeon/Engine Mechanic: CARLO QUIROZ,GENARO Payne Anesthesia: local monitored anesthesi Complications: None Operative/Procedure Note Note: The patient was brought to the operating room standard monitoring equipment was attached the patient was prepped and draped in the usual fashion for intraocular surgery. A lid speculum was placed to retract the lids. The case was begun by making 2 partial-thickness corneal relaxing incisions at 85. A temporal incision with a 2.4 mm keratome. The eye was stabilized with a Connolly ring during this incision. 1 mL of non-preserved lidocaine was introduced into the anterior chamber to provide anesthesia. The anterior chamber was then filled and deepened with viscoelastic. A curvilinear capsulorrhexis was achieved using a 30-gauge needle and is a cystotome and capsulorrhexis was finished using a Utrata forceps. A second or paracentesis incision was made temporally with a 1 mm MVR blade. The lens was then hydrodissected with balanced salt solution and found to be rotatable. The lens was emulsified using phacoemulsification and a modified four-quadrant cracking technique. The residual cortical material was removed using automated irrigation and aspiration and as much of the anterior capsular rim was cleaned as well as possible. The posterior capsule was cleaned first with the automated machine on a low setting and then manually with a Desean squeegee. The capsular bag was deepened with viscoelastic. The lens a Technis 1 21.5 Diopter placed into the bag under direct visualization and rotated so that the haptics were at 12 and 6:00. Viscoelastic was then removed from the eye by flushing it out and then by automated irrigation and aspiration. The eye was pressurized to a normal tone. 1/10 of a cc of vancomycin solution was introduced into the anterior chamber to provide antibiotic prophylaxis. The wounds were sealed by hydrating the stroma adjacent to them and the eye was left at a proper tone after the wounds were checked and found not to be leaking. The lid speculum was removed from the orbit. Antibiotic and steroid drops were placed on the eye and then the eye was shielded. Monitoring equipment was removed from the patient and the patient was removed from the operative suite to the holding area. The patient tolerated the procedure well and will be seen in the office tomorrow.
== END ==
LOC: STS 02:24
DX: H25.9 Unspecified age-related cataract (principal); I10 Essential (primary) hypertension; E11.9 Type 2 diabetes mellitus without complications; Z79.4 Long term (current) use of insulin; Z86.73 Personal history of transient ischemic attack (TIA), and cerebral infarction without residual deficits; E07.9 Disorder of thyroid, unspecified
CPT/HCPCS: J2250; V2632